=== PATIENT | female | born 1945 | race African-American/Black ===

== ENCOUNTER 2017-07-23 15:23 | Emergency (ER) | payer MEDICARE, MEDICAID ==
[2017-07-23] MEDS ORDERED: NORMAL SALINE 1000 ML 1,000 ML IV PRN (16:16)
--- NOTE | 2017-07-23 16:16 | ER Document Report ---
ED General - General Chief Complaint: Abdominal Pain Stated Complaint: ABDOMINAL PAIN Time Seen by Provider: 07/23/17 15:53 Mode of Arrival: Ambulatory Information source: Patient Notes: This is a 71-year-old female with baseline cognitive dysfunction who comes to the emergency room because of abdominal pain. Patient states she has had the abdominal pain for the last day. She denies any nausea or vomiting. She cannot tell me if anything makes it better or worse. TRAVEL OUTSIDE OF THE [place] IN LAST 30 DAYS: No - HPI Onset/Duration: Gradual Quality of pain: No pain Severity: None Pain Level: Denies Associated symptoms: denies: Chills, Fever Exacerbated by: Denies Relieved by: Denies Similar symptoms previously: Yes Recently seen / treated by doctor: Yes - Related Data Allergies/Adverse Reactions: No Known Allergies Allergy (Verified 11/25/12 15:44) Past Medical History - General Information source: Patient - Social History Smoking Status: Never Smoker Cigarette use (# per day): No Chew tobacco use (# tins/day): No Frequency of alcohol use: None Drug Abuse: None Lives with: Family Family History: Reviewed & Not Pertinent Patient has suicidal ideation: No Patient has homicidal ideation: No - Past Medical History Cardiac Medical History: Reports: Hx Hypertension Endocrine Medical History: Reports: Hx Diabetes Mellitus Type 2 Renal/ Medical History: Denies: Hx Peritoneal Dialysis Past Surgical History: Reports: Hx Abdominal Surgery - Immunizations Hx Diphtheria, Pertussis, Tetanus Vaccination: Yes Review of Systems - Review of Systems Constitutional: denies: Chills, Fever EENT: No symptoms reported Cardiovascular: No symptoms reported Respiratory: No symptoms reported Gastrointestinal: See HPI Genitourinary: No symptoms reported Female Genitourinary: No symptoms reported Musculoskeletal: No symptoms reported Skin: No symptoms reported Hematologic/Lymphatic: No symptoms reported Neurological/Psychological: No symptoms reported Physical Exam - Vital signs Vitals: Temp Pulse Resp BP Pulse Ox 97.8 F 76 18 130/66 H 100 07/23/17 15:34 07/23/17 15:34 07/23/17 15:34 07/23/17 15:34 07/23/17 15:34 Notes: Physical exam: GENERAL: 71-year-old female, alert and oriented 3, no acute distress. Rectal temperature 98f HEAD: Atraumatic, normocephalic. EYES: Pupils equal round and reactive to light, extraocular movements intact, sclera anicteric, conjunctiva are normal. ENT: TMs normal, nares patent, oropharynx clear without exudates. Moist mucous membranes. NECK: Normal range of motion, supple without obvious mass or JVD. LUNGS: Breath sounds clear to auscultation bilaterally and equal. No wheezes rales or rhonchi. HEART: Regular rate and rhythm without murmurs, rubs or gallops. ABDOMEN: Soft, normoactive bowel sounds. Mild upper abdominal tenderness without rebound or guarding, no masses appreciated Rectal: Brown stool, sent for study EXTREMITIES: Normal range of motion, no pitting or edema. No clubbing or cyanosis. NEUROLOGICAL: Cranial nerves II through XII grossly intact. Normal speech, moving all extremities. PSYCH: Normal mood, normal affect. SKIN: Warm, Dry, normal turgor, no rashes or lesions noted. Course - Vital Signs Vital signs: Temp Pulse Resp BP Pulse Ox 97.8 F 75 18 132/61 H 95 07/23/17 15:34 07/23/17 18:00 07/23/17 18:00 07/23/17 18:00 07/23/17 18:00 - Laboratory Result Diagrams: 07/23/17 18:29 07/23/17 17:23 Laboratory results interpreted by me: 07/23/17 07/23/17 07/23/17 17:23 18:29 19:47 Hgb 11.4 L Hct 35.2 L MCV 75 L MCH 24.3 L Est GFR (Non-Af Amer) 58 L Glucose 138 H Calcium 10.5 H Ur Leukocyte Esterase SMALL H - Diagnostic Test Radiology reviewed: Image reviewed, Reports reviewed - CT of the abdomen shows no acute intra-abdominal process. Ultrasound of the gallbladder showed no evidence of gallbladder disease. Discharge - Discharge Clinical Impression: Gastritis, Abdominal pain Condition: Stable Disposition: HOME, SELF-CARE Instructions: Abdominal Pain ([facility]) Additional Instructions: Thank you for choosing [facility] for your care. The examination and treatment you have received in the Emergency Department today has been rendered on an emergency basis only and is not intended to be a substitute for complete medical care. You should contact your follow-up physician as it is important that he or she examine you for any new or remaining problems. If given a copy of any lab tests or radiology reports, please bring them with you when you see your physician. If your problem worsens or new symptoms appear and you are unable to arrange prompt follow-up care, return to the Emergency Department. Specific signs to look out for: Worsening abdominal pain, fever (temperature greater than 100.4), vomiting, not tolerating fluids or any concerns or getting worse. Any other instructions: Follow-up with Dr. Clark this week. He will be able to see all the results from the labs, CT scan and ultrasound. Continue current medicines. Dr Clark Address: [address] [place] [address] [place] [address] Referrals: CAM CLARK MD [Primary Care Provider] - Follow up in 3-5 days
--- NOTE | 2017-07-23 16:52 | RADIOLOGY REPORT (SQ) ---
EXAM DESCRIPTION: CHEST SINGLE VIEW COMPLETED DATE/TIME: 07/23/2017 4:40 pm REASON FOR STUDY: chest pain COMPARISON: 01/10/2013. EXAM PARAMETERS: NUMBER OF VIEWS: One view. TECHNIQUE: Single frontal radiographic view of the chest acquired. RADIATION DOSE: NA LIMITATIONS: None. FINDINGS: LUNGS AND PLEURA: No infiltrate, masses or pneumothorax. No pleural effusion. MEDIASTINUM AND HILAR STRUCTURES: No masses. Contour normal. HEART AND VASCULAR STRUCTURES: Heart normal in size. Normal vasculature. BONES: No acute findings. HARDWARE: None in the chest. OTHER: No other significant finding. IMPRESSION: No acute disease. TECHNICAL DOCUMENTATION: JOB ID: [id number] [id number] 2010 [employer]- All Rights Reserved
[2017-07-23 17:53] LABS: ALANINE AMINOTRANSFERASE 26 U/L (9-52); ALBUMIN 4.6 g/dL (3.5-5.0); ALKALINE PHOSPHATASE 98 U/L (38-126); ANION GAP 15 (5-19); ASPARTATE AMINO TRANSFERASE 19 U/L (14-36); BILIRUBIN,DIRECT 0.3 mg/dL (0.0-0.4); BILIRUBIN,TOTAL 0.4 mg/dL (0.2-1.3); BLOOD UREA NITROGEN 13 mg/dL (7-20); CALCIUM 10.5 mg/dL (8.4-10.2); CARBON DIOXIDE 26 mmol/L (22-30); CHLORIDE 103 mmol/L (98-107); CREATININE RESULT 0.95 mg/dL (0.52-1.25); GLUCOSE 138 mg/dL (75-110); LIPASE 59.4 U/L (23-300); POTASSIUM 4.7 mmol/L (3.6-5.0); SODIUM 143.6 mmol/L (137-145); TOTAL PROTEIN 8.1 g/dL (6.3-8.2)
--- NOTE | 2017-07-23 18:42 | RADIOLOGY REPORT (SQ) ---
EXAM DESCRIPTION: U/S ABDOMEN LIMITED W/O DOP COMPLETED DATE/TIME: 07/23/2017 6:21 pm REASON FOR STUDY: uppere abdomen pain COMPARISON: None. TECHNIQUE: Dynamic and static grayscale images acquired of the abdomen and recorded on PACS. Additio nal selected color Doppler and spectral images recorded. LIMITATIONS: None. FINDINGS: PANCREAS: No masses. Visualized pancreatic duct normal caliber. LIVER: No masses. Echotexture normal. LIVER VASCULATURE: Normal directional flow of the main portal vein and hepatic veins. GALLBLADDER: No stones. Normal wall thickness. No pericholecystic fluid. ULTRASOUND-DETECTED HALE'S SIGN: Negative. INTRAHEPATIC DUCTS AND COMMON DUCT: CBD and intrahepatic ducts normal caliber. No filling defects. INFERIOR VENA CAVA: Normal flow. AORTA: No aneurysm. RIGHT KIDNEY: Normal size. Normal echogenicity. No solid or suspicious masses. No hydronephrosis. No calcifications. PERITONEAL AND RIGHT PLEURAL SPACE: No ascites or effusions. OTHER: No other significant findings. IMPRESSION: NORMAL RIGHT UPPER QUADRANT ULTRASOUND. TECHNICAL DOCUMENTATION: JOB ID: [id number] [employer]- All Rights Reserved
[2017-07-23 18:47] LABS: ABSOLUTE BASOPHILS # (AUTO) 0.1 10^3/uL (0.0-0.2); ABSOLUTE EOSINOPHILS # (AUTO) 0.1 10^3/uL (0.0-0.6); ABSOLUTE LYMPHOCYTES (AUTO) 2.1 10^3/uL (0.5-4.7); ABSOLUTE MONOCYTES (AUTO) 0.4 10^3/uL (0.1-1.4); ABSOLUTE NEUT (AUTO) 4.1 10^3/uL (1.7-8.2); BASOPHILS % (AUTO) 0.8 % (0-2); EOSINOPHILS % (AUTO) 1.4 % (0-6); HEMATOCRIT 35.2 % (36.0-47.0); HEMOGLOBIN 11.4 g/dL (12.0-15.5); LYMPHOCYTES % (AUTO) 30.4 % (13-45); MEAN CORPUSCULAR HEMOGLOBIN 24.3 pg (27.0-33.4); MEAN CORPUSCULAR HGB CONC 32.4 g/dL (32.0-36.0); MEAN CORPUSCULAR VOLUME 75 fl (80-97); MONOCYTES % (AUTO) 6.1 % (3-13); RED BLOOD COUNT 4.69 10^6/uL (3.72-5.28); RED CELL DISTRIBUTION WIDTH 13.9 % (11.5-14.0); SEGMENTED NEUTROPHILS % (AUTO) 61.3 % (42-78); WHITE BLOOD COUNT 6.8 10^3/uL (4.0-10.5)
--- NOTE | 2017-07-23 19:50 | RADIOLOGY REPORT (SQ) ---
EXAM DESCRIPTION: CT ABD/PELVIS WITH IV ONLY COMPLETED DATE/TIME: 07/23/2017 7:31 pm REASON FOR STUDY: abd pain COMPARISON: 07/23/2017 ultrasound. TECHNIQUE: CT scan of the abdomen and pelvis performed using helical scanning technique with dynamic intravenous contrast injection. No oral contrast. Images reviewed with lung, soft tissue, and bone windows. Reconstructed coronal and sagittal MPR images reviewed. Delayed images for evaluation of the urinary system also acquired. All images stored on PACS. All CT scanners at this facility use dose modulation, iterative reconstruction, and/or weight based d osing when appropriate to reduce radiation dose to as low as reasonably achievable (ALARA). [facility]: Dose Right [facility]: CareDose [facility]: Dose Right [facility]: Teradose 4D [facility]: [employer] CONTRAST TYPE AND DOSE: contrast/concentration: Isovue 370.00 mg/ml; Total Contrast Delivered: 99.0 ml; Total Saline Delivered: 67.0 ml RENAL FUNCTION: Creatinine 0.95 RADIATION DOSE: CT Rad equipment meets quality standard of care and radiation dose reduction techniq ues were employed. CTDIvol: 6.4 - 8.8 mGy. DLP: 744 mGy-cm.. LIMITATIONS: None. FINDINGS: LOWER CHEST: Motion artifact and subsegmental volume loss/scar. LIVER: Normal size. No masses. No dilated ducts. SPLEEN: Normal size. No focal lesions. PANCREAS: No masses. No significant calcifications. No adjacent inflammation or peripancreatic fluid collections. Pancreatic duct not dilated. GALLBLADDER: No identified stones by CT criteria. No inflammatory changes to suggest cholecystitis. ADRENAL GLANDS: No significant masses or asymmetry. RIGHT KIDNEY AND URETER: Subcentimeter exophytic lesion laterally off the mid pole with elevated Houn sfield units. No urinary obstruction or stones. LEFT KIDNEY AND URETER: Subcentimeter exophytic nodule off the lateral upper pole with elevated Houns field units. No stones or obstruction. AORTA AND VESSELS: No aneurysm. No dissection. Renal arteries, SMA, celiac without stenosis. RETROPERITONEUM: No retroperitoneal adenopathy, hemorrhage or masses. BOWEL AND PERITONEAL CAVITY: No abnormally dilated loops. No evidence of mechanical obstruction, asc ites or abnormal gas. No bulky adenopathy or implants detected. Evidence of previous surgery, sutur es in right lower quadrant small bowel. APPENDIX: Not visualized. PELVIS: No mass. No free fluid. Normal bladder. ABDOMINAL WALL: No masses. No hernias. BONES: Lumbar spondylosis with disc disease most pronounced at L1-2. No fracture or worrisome bone l esion. OTHER: No other significant finding. IMPRESSION: 1. No acute abdominopelvic abnormality. 2. Small bilateral subcentimeter exophytic nidhi l lesions. Potentially small solid masses. Ultrasound of the right upper quadrant from earlier toda y revealed no solid mass. Elective followup renal MRI when the patient is no longer acutely ill may be warranted. TECHNICAL DOCUMENTATION: JOB ID: [id number] Quality ID # [id number]: Final reports with documentation of one or more dose reduction techniques (e.g., Au tomated exposure control, adjustment of the mA and/or kV according to patient size, use of iterative reconstruction technique) 2010 [employer]- All Rights Reserved
[2017-07-23 20:02] LABS: APPEARANCE,URINE CLEAR; BILIRUBIN,URINE NEGATIVE (NEGATIVE); GLUCOSE, URINE NEGATIVE (NEGATIVE); KETONES,URINE NEGATIVE (NEGATIVE); LEUKOCYTE ESTERASE,URINE SMALL (NEGATIVE); NITRITE,URINE NEGATIVE (NEGATIVE); PROTEIN,URINE NEGATIVE (NEGATIVE); URINE SPECIFIC GRAVITY 1.013; UROBILINOGEN,URINE NEGATIVE mg/dL (<2.0)
[2017-07-23 21:25] VITALS: BP 134/78
== END 2017-07-23 21:23 | disposition home or self-care (01) ==
LOC: ER 15:23
DX: K29.70 Gastritis, unspecified, without bleeding (principal); R10.9 Unspecified abdominal pain
CPT/HCPCS: 36415; 71010; 74177; 76705; 80053; 81001; 82272; 83690; 85025; 99284; L1830

== ENCOUNTER → 2017-09-19 | Outpatient (CLI) | payer MEDICARE, MEDICAID ==
--- NOTE | 2017-09-19 11:35 | WOMENS IMAGING REPORT ---
EXAM DESCRIPTION: 3D SCREENING MAMMO BILAT COMPLETED DATE/TIME: 09/19/2017 10:30 am REASON FOR STUDY: SCREENING MAMMO Z12.31 ENCNTR SCREEN MAMMOGRAM FOR MALIGNANT NEOPLASM OF [place]AN COMPARISON: 06/22/2016 and 02/12/2015. TECHNIQUE: Standard craniocaudal and mediolateral oblique views of each breast recorded using digita l acquisition and breast tomosynthesis. LIMITATIONS: None. FINDINGS: No masses, calcifications or architectural distortion. No areas of suspicion. Read with the assistance of CAD. .[facility] - R2 [employer] Version 1.3 .[facility] - R2 Cen[employer] Version 1.3 .[facility] - R2 C[employer] Version 2.4 .[facility] [place] R2 Cenova Version 2.4 .[facility] - R2 [employer] Version 9.2 IMPRESSION: NORMAL MAMMOGRAM. BIRADS 1. BREAST DENSITY: b. There are scattered areas of fibroglandular density. BIRAD: 1 NEGATIVE RECOMMENDATION: ROUTINE SCREENING COMMENT: The patient has been notified of the results by letter per SA requirements. Additional no tification policies are in place for contacting patient with suspicious or incomplete findings. Quality ID #225: The [employer] recommends an annual screening mammogram for women aged 40 years or over. This facility utilizes a reminder system to ensure that all patients receive reminder letters, and/or direct phone calls for appointments. This includes reminders for routine scr eening mammograms, diagnostic mammograms, or other Breast Imaging Interventions when appropriate. Th is patient will be placed in the appropriate reminder system. The [place] (ACR) has developed recommendations for screening MRI of the breast s in certain patient populations, to be used in conjunction with mammography. Breast MRI surveillanc e may be appropriate for women with more than 20% lifetime risk of developing breast cancer as deter mined by genetic testing, significant family history of the disease, or history of mantle radiation f or Hodgkins Disease. ACR Practice Guidelines 2008. DBT Technology DBT is a type of tomographic mammography. With conventional mammography, overlapping breast tissue ma y make lesions difficult to detect, even with good compression. DBT uses an x-ray tube that rotates a round the breast, taking images at different angles. These images are then combined to create thin sl ices of the breast that the radiologist can view as a 3D reconstruction. The [employer] unit can perform full-field digital mammograms (2D imaging); or DBT (3D imaging); or both, in a combination mode that quickly performs both the mammogram and the tomosynthesis scan while the breast is still compressed. PQRS 6045F: Fluoroscopic imaging is not utilized for breast tomosynthesis. TECHNICAL DOCUMENTATION: FINDING NUMBER: (1) ASSESSMENT: (1) JOB ID: [id number] [employer]- All Rights Reserved
== END ==
LOC: WI 10:15
PROVIDERS: ATTEND Internal Medicine Geriatric Medicine
DX: Z12.31 Encounter for screening mammogram for malignant neoplasm of breast (principal)
CPT/HCPCS: 77063; 77067

== ENCOUNTER → 2018-01-23 | Outpatient (CLI) | payer MEDICARE, MEDICAID ==
[2018-01-24 11:39] LABS: CREATININE URINE 73.8 mg/dL (Not Estab.); MICROALBUMIN URINE <3.0 ug/mL (Not Estab.)
== END ==
LOC: OD 10:25
PROVIDERS: ATTEND Internal Medicine Geriatric Medicine
DX: E11.9 Type 2 diabetes mellitus without complications (principal)
CPT/HCPCS: 82043; 82570

== ENCOUNTER → 2018-08-29 | Outpatient (CLI) | payer MEDICARE, MEDICAID ==
[2018-08-29 10:03] LABS: ALANINE AMINOTRANSFERASE 17 U/L (9-52); ALBUMIN 4.7 g/dL (3.5-5.0); ALKALINE PHOSPHATASE 112 U/L (38-126); ANION GAP 10 (5-19); ASPARTATE AMINO TRANSFERASE 19 U/L (14-36); BILIRUBIN,DIRECT 0.2 mg/dL (0.0-0.4); BILIRUBIN,TOTAL 0.5 mg/dL (0.2-1.3); BLOOD UREA NITROGEN 16 mg/dL (7-20); CALCIUM 10.4 mg/dL (8.4-10.2); CARBON DIOXIDE 28 mmol/L (22-30); CHLORIDE 102 mmol/L (98-107); GLUCOSE 114 mg/dL (75-110); IRON(TIBC) 71.6 ug/dL (37-170); POTASSIUM 5.1 mmol/L (3.6-5.0); SODIUM 140.1 mmol/L (137-145); TOTAL PROTEIN 7.3 g/dL (6.3-8.2)
== END ==
LOC: OD 08:57
PROVIDERS: ATTEND Internal Medicine Geriatric Medicine
DX: R10.9 Unspecified abdominal pain (principal); D50.9 Iron deficiency anemia, unspecified
CPT/HCPCS: 36415; 80048; 80076; 82728; 83540; 83550

== ENCOUNTER → 2018-08-30 | Outpatient (CLI) | payer MEDICARE, MEDICAID ==
--- NOTE | 2018-08-30 14:46 | RADIOLOGY REPORT (SQ) ---
EXAM DESCRIPTION: CT ABD/PELVIS ORAL ONLY COMPLETED DATE/TIME: 08/30/2018 2:27 pm REASON FOR STUDY: ABDOMINAL PAIN R10.9 UNSPECIFIED ABDOMINAL PAIN COMPARISON: 11/25/2012 TECHNIQUE: CT scan of the abdomen and pelvis performed with oral contrast. Images reviewed with lung , soft tissue, and bone windows. Reconstructed coronal and sagittal MPR images reviewed. All images s tored on PACS. All CT scanners at this facility use dose modulation, iterative reconstruction, and/or weight based d osing when appropriate to reduce radiation dose to as low as reasonably achievable (ALARA). [facility]: Dose Right [facility]: CareDose [facility]: Dose Right [facility]: Teradose 4D [facility]: Smart [employer] RADIATION DOSE: CT Rad equipment meets quality standard of care and radiation dose reduction techniq ues were employed. CTDIvol: 5.0 mGy. DLP: 249 mGy-cm.mGy. LIMITATIONS: None. FINDINGS: LOWER CHEST: 2 very small pulmonary nodules are seen on the right on image 5. The larger measures 5 mm. NON-CONTRASTED LIVER, SPLEEN, ADRENALS: Evaluation limited by lack of IV contrast. No identified sign ificant masses. PANCREAS: No masses. No peripancreatic inflammatory changes. GALLBLADDER: No identified stones by CT criteria. No inflammatory changes to suggest cholecystitis. RIGHT KIDNEY AND URETER: No suspicious masses. Assessment limited by lack of IV contrast. No signif icant calcifications. No hydronephrosis or hydroureter. LEFT KIDNEY AND URETER: No suspicious masses. Assessment limited by lack of IV contrast. No signifi cant calcifications. No hydronephrosis or hydroureter. AORTA AND RETROPERITONEUM: No aneurysm. No retroperitoneal masses or adenopathy. BOWEL AND PERITONEAL CAVITY: No obvious masses or inflammatory changes. No free fluid. APPENDIX: Not identified. PELVIS, BLADDER, AND ABDOMINAL WALL:The uterus is absent. Urinary bladder is unremarkable. No pelvi c masses or fluid collections. BONES: No significant findings. OTHER: No other significant finding. IMPRESSION: 1. There are no acute findings in the abdomen or pelvis. 2. There are 2 very small pulmonary nodules on the right. Follow-up as below. COMMENT: FLEISCHNER CRITERIA FOR FOLLOW-UP OF PULMONARY NODULES Incidentally detected new nodules in persons 35 or older. HIGH RISK: History of smoking or other known risk factors. <6mm multiple solid nodules: LOW RISK: no routine followup. HIGH RISK: optional CT 12 mo. Quality ID # 436: Final reports with documentation of one or more dose reduction techniques (e.g., Au tomated exposure control, adjustment of the mA and/or kV according to patient size, use of iterative reconstruction technique) TECHNICAL DOCUMENTATION: JOB ID: [id number]- All Rights Reserved Reading location - IP/workstation name: [email or web address]
== END ==
LOC: RAD 13:38
PROVIDERS: ATTEND Internal Medicine Geriatric Medicine
DX: R10.9 Unspecified abdominal pain (principal)
CPT/HCPCS: 74176

== ENCOUNTER 2018-09-08 11:19 | Emergency (ER) | payer MEDICARE, MEDICAID ==
--- NOTE | 2018-09-08 11:53 | ER Document Report ---
ED Medical Screen (RME) - General Chief Complaint: Eye Problem Stated Complaint: VISION LOSS Time Seen by Provider: 09/08/18 11:50 Primary Care Provider: CAM CLARK MD [Primary Care Provider] - Follow up as needed TRAVEL OUTSIDE OF THE [place] IN LAST 30 DAYS: No - HPI Notes: 09/08/18 11:53 History of glaucoma difficulty seeing today. - Related Data Allergies/Adverse Reactions: No Known Allergies Allergy (Verified 09/08/18 11:20) Past Medical History - Past Medical History Cardiac Medical History: Reports: Hx Hypertension Endocrine Medical History: Reports: Hx Diabetes Mellitus Type 2 Renal/ Medical History: Denies: Hx Peritoneal Dialysis Past Surgical History: Reports: Hx Abdominal Surgery - Immunizations Hx Diphtheria, Pertussis, Tetanus Vaccination: Yes Review of Systems - Review of Systems EENT: Other - Blurry vision Physical Exam - Vital signs Vitals: Temp Pulse Resp BP Pulse Ox 98.7 F 76 18 146/104 H 98 09/08/18 11:27 09/08/18 11:27 09/08/18 11:27 09/08/18 11:27 09/08/18 11:27 - HEENT Head: Normocephalic Course - Vital Signs Vital signs: Temp Pulse Resp BP Pulse Ox 98.7 F 76 18 146/104 H 98 09/08/18 11:27 09/08/18 11:27 09/08/18 11:27 09/08/18 11:27 09/08/18 11:27 Doctor's Discharge - Discharge Referrals: CAM CLARK MD [Primary Care Provider] - Follow up as needed
--- NOTE | 2018-09-08 12:28 | RADIOLOGY REPORT (SQ) ---
EXAM DESCRIPTION: CT HEAD WITHOUT COMPLETED DATE/TIME: 09/08/2018 12:19 pm REASON FOR STUDY: loss of vision COMPARISON: None. TECHNIQUE: Axial images acquired through the brain without intravenous contrast. Images reviewed wi th bone, brain and subdural windows. Additional sagittal and coronal reconstructions were generated. Images stored on PACS. All CT scanners at this facility use dose modulation, iterative reconstruction, and/or weight based d osing when appropriate to reduce radiation dose to as low as reasonably achievable (ALARA). [facility]: Dose Right [facility]: CareDose [facility]: Dose Right [facility]: Teradose 4D [facility]: Smart [employer] RADIATION DOSE: CT Rad equipment meets quality standard of care and radiation dose reduction techniq ues were employed. CTDIvol: 53.2 mGy. DLP: 1097 mGy-cm. mGy. LIMITATIONS: None. FINDINGS: VENTRICLES: Normal size and contour. CEREBRUM: No masses. No hemorrhage. No midline shift. No evidence for acute infarction. Normal gra y/white matter differentiation. No areas of low density in the white matter. CEREBELLUM: No masses. No hemorrhage. No alteration of density. No evidence for acute infarction. EXTRAAXIAL SPACES: No fluid collections. No masses. ORBITS AND GLOBE: No intra- or extraconal masses. Normal contour of globe without masses. CALVARIUM: No fracture. PARANASAL SINUSES: No fluid or mucosal thickening. SOFT TISSUES: No mass or hematoma. OTHER: No other significant finding. IMPRESSION: No acute intracranial pathology. EVIDENCE OF ACUTE STROKE: NO. COMMENT: Quality ID # 436: Final reports with documentation of one or more dose reduction techniques (e.g., Automated exposure control, adjustment of the mA and/or kV according to patient size, use of iterative reconstruction technique) TECHNICAL DOCUMENTATION: JOB ID: [id number] [employer]- All Rights Reserved Reading location - IP/workstation name: [email or web address]
[2018-09-08] MEDS ORDERED: TETRACAINE HCL 0.5% OPH SOLN 4 ML OD ONE (14:09)
[2018-09-08 15:23] VITALS: BP 147/69
--- NOTE | 2018-09-08 16:22 | ER Document Report ---
ED General - General Chief Complaint: Eye Problem Stated Complaint: VISION LOSS Time Seen by Provider: 09/08/18 11:50 Primary Care Provider: CAM CLARK MD [Primary Care Provider] - Follow up as needed Mode of Arrival: Stretcher Information source: Patient Notes: This is a 73-year-old female with a history of diabetes, dyslipidemia, hypertension, glaucoma and baseline cognitive dysfunction (at baseline she does not read). Patient was at daycare on (2 days ago) when she noticed decreased vision in her right eye while working on puzzles. Her care provider at home (Ms. Chela Huntley [phone]) reports that the patient stated that the vision seemed to improve somewhat on Monday and that when she woke up on Monday she could not see out of the right eye. Patient does have some confusion on which I she had difficulty with. But at the bedside, she is unable to distinguish figures from the right eye. Patient denies any trauma to the eye. Patient denies any eye discharge. She patient denies any wavy lines. Patient denies any pain. TRAVEL OUTSIDE OF THE [place] IN LAST 30 DAYS: No - HPI Onset: Last week - Patient initially stated that she was having symptoms a week ago. Patient's aide (Ms. Huntley) states that her symptoms were on . Onset/Duration: Sudden Quality of pain: No pain Severity: None Pain Level: Denies Associated symptoms: denies: Chest pain, Nonproductive cough, Productive cough, Fever Exacerbated by: Denies Relieved by: Denies Similar symptoms previously: No Recently seen / treated by doctor: No - Related Data Allergies/Adverse Reactions: No Known Allergies Allergy (Verified 09/08/18 11:20) Past Medical History - General Information source: Patient - Social History Smoking Status: Never Smoker Cigarette use (# per day): No Chew tobacco use (# tins/day): Yes Frequency of alcohol use: None Drug Abuse: None Lives with: Family Family History: Reviewed & Not Pertinent Patient has suicidal ideation: No Patient has homicidal ideation: No - Past Medical History Cardiac Medical History: Reports: Hx Hypertension Endocrine Medical History: Reports: Hx Diabetes Mellitus Type 2 Renal/ Medical History: Denies: Hx Peritoneal Dialysis Past Surgical History: Reports: Hx Abdominal Surgery, Other - Cataract surgery on the right - Immunizations Hx Diphtheria, Pertussis, Tetanus Vaccination: Yes Review of Systems - Review of Systems Constitutional: denies: Chills, Fever EENT: See HPI Cardiovascular: denies: Chest pain, Palpitations, Heart racing Respiratory: denies: Cough, Short of breath Gastrointestinal: No symptoms reported Female Genitourinary: No symptoms reported Musculoskeletal: No symptoms reported Skin: No symptoms reported Hematologic/Lymphatic: No symptoms reported Neurological/Psychological: No symptoms reported Physical Exam - Vital signs Vitals: Temp Pulse Resp BP Pulse Ox 98.7 F 76 18 146/104 H 98 09/08/18 11:27 09/08/18 11:27 09/08/18 11:27 09/08/18 11:27 09/08/18 11:27 Notes: Physical exam: GENERAL: Patient is alert and oriented x3, no acute distress. HEAD: Atraumatic, normocephalic. EYES: Left eye: pupil Round and reactive to light. Sclerae clear. Patient is able to distinguish and count fingers. She is unable to read letters (at baseline, she is unable to read). No obvious hyphema. Bedside ultrasound shows no retinal detachment. Tonopen: Pressure is 20 (tested multiple times). Right eye: Pupil is irregular (patient has had surgery). The sclera is mildly injected. Patient has no pain to the eye. There is some reactivity to light. Chilo-Pen: Pressure is 13-14 (tested multiple times). Bedside ultrasound: No obvious retinal detachments. Slit lamp available in the ER. ENT: TMs normal, nares patent, oropharynx clear without exudates. Moist mucous membranes. NECK: Normal range of motion, supple without obvious mass or JVD. LUNGS: Breath sounds clear to auscultation bilaterally and equal. No wheezes rales or rhonchi. HEART: Regular rate and rhythm without murmurs, rubs or gallops. ABDOMEN: Soft, normoactive bowel sounds. No tenderness to palpation. No guarding, no rebound. No masses appreciated. EXTREMITIES: Normal range of motion, no pitting or edema. No clubbing or cyanosis. NEUROLOGICAL: Cranial nerves II through XII grossly intact. Normal speech, moving all extremities. PSYCH: Normal mood, normal affect. SKIN: Warm, Dry, normal turgor, no rashes or lesions noted. - HEENT Visual acuity- Left eye: un Visual acuity- Both eyes: un Corrective lenses worn: No Course - Re-evaluation Re-evalutation: 09/08/18 16:18 Note: This is a 73-year-old female with a history of glaucoma, diabetes, dyslipidemia and hypertension presenting to the emergency room with painless, monocular (right-sided) vision loss 2 days. Bedside ultrasound does not show any obvious retinal detachment. The pupil itself is somewhat irregular (which is probably baseline). There is some response of the pupil to light. The pressure in the eye (tested multiple times) and is in the range of 13-14. 09/08/18 17:28 Discussed the case with Dr. Horton (patient's eye doctor in [place]). Given the above findings, she wants to see the patient in the office tomorrow (Monday at 1:30 PM). She felt that mostly what ever the event was that occurred, has already taken place and she will now follow-up with the patient tomorrow. I have discussed this with ms Huntley about the appointment tomorrow and she will make arrangements with the patient's family. - Vital Signs Vital signs: Temp Pulse Resp BP Pulse Ox 98.1 F 60 16 147/69 H 100 09/08/18 15:20 09/08/18 15:20 09/08/18 15:20 09/08/18 15:20 09/08/18 15:20 - Diagnostic Test Radiology reviewed: Image reviewed, Reports reviewed - CT shows no lesions Discharge - Discharge Clinical Impression: Monocular vision loss Condition: Stable Disposition: HOME, SELF-CARE Additional Instructions: Your head CT today look quite good. On exam, the vision loss does appear to be the right eye. Her eye pressures today were 20 on the right eye, 13 on the left eye. I have discussed your findings with Dr. Horton who is willing to see you in her office in [place] tomorrow (Monday) at 1:30 PM. You can call her if you are unable to make it to see his you do have her number). I do recommend you take an aspirin a day. Referrals: CAM CLARK MD [Primary Care Provider] - Follow up as needed
== END 2018-09-08 17:47 | disposition home or self-care (01) ==
LOC: ER 11:19
DX: H54.61 Unqualified visual loss, right eye, normal vision left eye (principal); E11.9 Type 2 diabetes mellitus without complications; I10 Essential (primary) hypertension; Z55.0 Illiteracy and low-level literacy; Z98.890 Other specified postprocedural states
CPT/HCPCS: 99284; 70450; J3490

== ENCOUNTER 2018-10-02 06:21 | Day surgery (SDC) | payer MEDICARE, MEDICAID ==
[2018-10-01 12:02] LABS: HEMATOCRIT 37.9 % (36.0-47.0); HEMOGLOBIN 12.2 g/dL (12.0-15.5); MEAN CORPUSCULAR HEMOGLOBIN 24.3 pg (27.0-33.4); MEAN CORPUSCULAR HGB CONC 32.1 g/dL (32.0-36.0); MEAN CORPUSCULAR VOLUME 76 fl (80-97); PLATELET COUNT 375 10^3/uL (150-450); RED BLOOD COUNT 5.01 10^6/uL (3.72-5.28); RED CELL DISTRIBUTION WIDTH 13.9 % (11.5-14.0); WHITE BLOOD COUNT 7.3 10^3/uL (4.0-10.5)
[2018-10-01 12:24] LABS: ANION GAP 12 (5-19); BLOOD UREA NITROGEN 16 mg/dL (7-20); CARBON DIOXIDE 28 mmol/L (22-30); CHLORIDE 103 mmol/L (98-107); GLUCOSE 101 mg/dL (75-110)
[~2018-10-02 06:21] MED LIST: LACTATED RINGERS 1000 ML IV PRN; LIDOCAINE 0.5% INJ-PF (5 MG/ML) 50 ML SDV SUBCUT PRN
[2018-10-02] MEDS ORDERED: LIDOCAINE 0.5% INJ-PF (5 MG/ML) 50 ML SDV ONE (08:13)
[2018-10-02] MEDS ORDERED: BUPIVACAINE HCL 0.25 % INJ/PF (2.5 MG/1 ML) 30 ML VIAL ONE (08:13)
[2018-10-02] MEDS ORDERED: MIDAZOLAM 2 MG/2 ML INJ ONE (08:21)
[2018-10-02] MEDS ORDERED: FENTANYL CITRATE INJ/PF 100 MCG/2 ML AMPUL ONE (08:21)
[2018-10-02] MEDS ORDERED: ACETAMINOPHEN 0 MG/0 ML RTUPB IV ONE (08:21)
[2018-10-02] MEDS ORDERED: PROPOFOL INJ 200 MG/20 ML VIAL IV ONE (08:21)
[2018-10-02] MEDS ORDERED: ONDANSETRON HCL INJ/PF 4 MG/2 ML SDV ONE (08:21)
[2018-10-02] MEDS ORDERED: EPHEDRINE SULFATE INJ 50 MG/1 ML AMPULE ONE (08:21)
[2018-10-02] MEDS ORDERED: PROMETHAZINE HCL INJ 25 MG/1 ML VIAL IV PRN ×2 (09:38)
[2018-10-02] MEDS ORDERED: FENTANYL CITRATE INJ/PF 100 MCG/2 ML AMPUL IV PRN ×2 (09:38)
[2018-10-02] MEDS ORDERED: DIPHENHYDRAMINE HCL 50 MG/ML VIAL IV PRN (09:38)
[2018-10-02] MEDS ORDERED: MEPERIDINE HCL/PF INJ 25 MG/1 ML DISP.SYRIN IV PRN (09:38)
--- NOTE | 2018-10-02 09:42 | Discharge Summary ---
Discharge Summary (SDC) - Discharge Final Diagnosis: #1 temporal arteritis, suspected. 2. Diabetes mellitus type 2. 3. Developmental delay. 4. Hypertension Date of Surgery: 10/02/18 Discharge Date: 10/02/18 Condition: Fair Treatment or Instructions: Discharge home [after recovery per ASU criteria]. Diet , [renal],as tolerated, when fully awake advance as tolerated. Activities within moderation encouraged. Follow up in my office by appointment in about [1 week]. Call for appointment. Leave wounds [covered], [keep clean and dry, until office visit in 1 week]. Hold of on school/work [until evaluation in office]. Meds per med rec. May shower [in 48 hrs], [try to keep operated area as dry as possible]. Referrals: CAM CLARK MD [Primary Care Provider] - Discharge Diet: As Tolerated Respiratory Treatments at Home: Deep Breathing/Coughing Discharge Activity: Activity As Tolerated Report the Following to Your Physician Immediately: Shortness of Breath, Unusual Bleeding
--- NOTE | 2018-10-02 09:45 | Operative Report ---
Operative Report DATE OF SURGERY: 10/02/18 PREOPERATIVE DIAGNOSIS: #1 temporal arteritis, suspected. 2. Diabetes mellitus type 2. 3. Developmental delay. 4. Hypertension POSTOPERATIVE DIAGNOSIS: #1 temporal arteritis, suspected. 2. Diabetes mellitus type 2. 3. Developmental delay. 4. Hypertension OPERATION: Left temporal artery biopsy. SURGEON: RAJ AHN LONG DISTANCE OPERATOR: None. ANESTHESIA: LMAC TISSUE REMOVED OR ALTERED: Left temporal artery, portion of. COMPLICATIONS: None. ESTIMATED BLOOD LOSS: 2 mL. INTRAOPERATIVE FINDINGS: Of a tortuous some, somewhat serpentine temporal artery slightly firm. No obvious inflammation to the naked eye. 2 cm removed and submitted fresh for pathology. PROCEDURE: PROCEDURE: This patient presents with symptoms of possible ophthalmic stroke. Symptoms seem mostly on the left. Temporal artery biopsy was requested by the patient's primary care physician. Given the potentially irreversible consequences of temporal arteritis, biopsy seems well indicated. This was discussed with the patient and her caregivers. I believe they have a good understanding and they are agreeable. The left temporal area was prepared with [chlorhexidine] and draped out with sterile linen. After the"universal time-out", in which it was confirmed that the patient [did not need antibiotic], the procedure commenced. The patient was appropriately anesthetized. The topographic location of the temporal artery was identified using a Doppler instrument and also palpation. It was marked in ink.. A dilute solution of local anesthesia was generously infiltrated in the skin and subcutaneous tissues above and around the area. An incision was made as marked. This went through to the subcutaneous tissues. Dissection now proceeded By spreading a hemostat to reveal the artery beneath the fascia. The artery was dissected out for a distance of about 2 cm. Both ends were clamped. The intervening section was excised and carefully submitted for pathology in formalin. Both ends were now suture ligated using 5-0 Prolene suture The wound was now closed using [a single layer of interrupted sutures. These were of 5-0 Prolene. A sterile dressing was applied and the procedure concluded.
[2018-10-02] MEDS: FENTANYL CITRATE INJ/PF 100 MCG/2 ML AMPUL ONE ×4 (10:11→10:30)
[2018-10-02] MEDS ORDERED: ACETAMINOPHEN 1,000 MG/100 ML RTUPB IV ONE (10:19)
[2018-10-02 12:17] VITALS: BP 153/71
--- NOTE | 2018-10-03 10:25 | EKG REPORT ---
SEVERITY:- BORDERLINE ECG - SINUS RHYTHM PROBABLE LEFT ATRIAL ABNORMALITY : Confirmed by: Susan London 03-Oct-2018 10:24:54
== END 2018-10-02 12:10 | disposition home health service (06) ==
LOC: OROUT 06:21
PROVIDERS: ATTEND Surgery
DX: I74.8 Embolism and thrombosis of other arteries (principal); I10 Essential (primary) hypertension; E11.9 Type 2 diabetes mellitus without complications; H53.31 Abnormal retinal correspondence; Z79.01 Long term (current) use of anticoagulants; D64.9 Anemia, unspecified; R62.50 Unspecified lack of expected normal physiological development in childhood; K21.9 Gastro-esophageal reflux disease without esophagitis; Z79.899 Other long term (current) drug therapy; Z79.84 Long term (current) use of oral hypoglycemic drugs
CPT/HCPCS: 93010; 93005; 36415; 82962; 85027; 80048; 88305 ×2; 37609; J2250; J3010; J3490; J2405; J2704; J0131; 352

== ENCOUNTER → 2018-10-16 | Outpatient (CLI) | payer MEDICARE, MEDICAID | LOC: OD 09:10 | PROVIDERS: ATTEND Ophthalmology Retina Specialist | DX: H47.011 Ischemic optic neuropathy, right eye (principal); H53.131 Sudden visual loss, right eye; H35.443 Age-related reticular degeneration of retina, bilateral | CPT/HCPCS: 36415; 85652; 86140 ==

== ENCOUNTER → 2019-01-14 | Outpatient (CLI) | payer MEDICARE, MEDICAID ==
--- NOTE | 2019-01-14 12:33 | WOMENS IMAGING REPORT ---
EXAM DESCRIPTION: 3D SCREENING MAMMO BILAT COMPLETED DATE/TIME: 01/14/2019 11:46 am REASON FOR STUDY: Z12.31 ROUTINE 3D BILATERAL SCREENING Z12.31 ENCNTR SCREEN MAMMOGRAM FOR MALIGNAN T NEOPLASM OF ESTEVAN COMPARISON: 09/19/2017 and 06/22/2016. EXAM PARAMETERS: Views: Standard craniocaudal and mediolateral oblique views of each breast recorded using digital acquisition and breast tomosynthesis. Read with the assistance of CAD. .[facility] - [employer] Bo[employer] Machine Operator Cloth Version 9.2 LIMITATIONS: None. FINDINGS: No suspicious masses, suspicious calcifications or architectural distortion. No areas of c oncern. IMPRESSION: NEGATIVE MAMMOGRAM. BIRADS 1. BREAST DENSITY: b. There are scattered areas of fibroglandular density. BIRAD: ASSESSMENT: 1 NEGATIVE RECOMMENDATION: ROUTINE SCREENING COMMENT: The patient has been notified of the results by letter per MQSA requirements. Additional no tification policies are in place for contacting patient with suspicious or incomplete findings. Quality ID #225: The [employer] recommends an annual screening mammogram for women aged 40 years or over. This facility utilizes a reminder system to ensure that all patients receive reminder letters, and/or direct phone calls for appointments. This includes reminders for routine scr eening mammograms, diagnostic mammograms, or other Breast Imaging Interventions when appropriate. Th is patient will be placed in the appropriate reminder system. TECHNICAL DOCUMENTATION: FINDING NUMBER: (1) ASSESSMENT: (1) JOB ID: [id number] [employer]- All Rights Reserved Reading location - IP/workstation name: [email or web address]
== END ==
LOC: WI 10:50
PROVIDERS: ATTEND Internal Medicine Geriatric Medicine
DX: Z12.31 Encounter for screening mammogram for malignant neoplasm of breast (principal)
CPT/HCPCS: 77063; 77067

== ENCOUNTER → 2019-12-23 | Outpatient (CLI) | payer MEDICARE, MEDICAID ==
[2019-12-23 09:05] LABS: ALBUMIN 4.4 g/dL (3.5-5.0); ALKALINE PHOSPHATASE 114 U/L (38-126); ANION GAP 7 (5-19); ASPARTATE AMINO TRANSFERASE 22 U/L (14-36); BILIRUBIN,DIRECT 0.2 mg/dL (0.0-0.4); BILIRUBIN,TOTAL 0.9 mg/dL (0.2-1.3); BLOOD UREA NITROGEN 23 mg/dL (7-20); CALCIUM 10.6 mg/dL (8.4-10.2); CARBON DIOXIDE 26 mmol/L (22-30); CHLORIDE 103 mmol/L (98-107); GLUCOSE 94 mg/dL (75-110); POTASSIUM 5.6 mmol/L (3.6-5.0); TOTAL PROTEIN 7.3 g/dL (6.3-8.2)
== END ==
LOC: OD 07:48
PROVIDERS: ATTEND Internal Medicine Geriatric Medicine
DX: I10 Essential (primary) hypertension (principal)
CPT/HCPCS: 36415; 80053

== ENCOUNTER → 2020-01-30 | Outpatient (CLI) | payer MEDICARE, MEDICAID ==
--- NOTE | 2020-01-30 15:10 | WOMENS IMAGING REPORT ---
EXAM DESCRIPTION: 3D SCREENING MAMMO BILAT IMAGES COMPLETED DATE/TIME: 01/30/2020 1:28 pm REASON FOR STUDY: Z12.31 ENCOUNTER FOR SCREENING MAMMOGRAM FOR MALIGNANT NEOPLASM OF BREAST Z12.31 ENCNTR SCREEN MAMMOGRAM FOR MALIGNANT NEOPLASM OF ESTEVAN COMPARISON: 01/14/2019, 09/19/2017, 06/22/2016, 02/12/2015 EXAM PARAMETERS: Views: Standard craniocaudal and mediolateral oblique views of each breast recorded using digital acquisition and breast tomosynthesis. . Read with the assistance of CAD. .[facility] - [employer] Version 2.4 LIMITATIONS: None. FINDINGS: No suspicious masses, suspicious calcifications or architectural distortion. No areas of c oncern. IMPRESSION: NEGATIVE MAMMOGRAM. BIRADS 1. BREAST DENSITY: b. There are scattered areas of fibroglandular density. BIRAD: ASSESSMENT: 1 NEGATIVE RECOMMENDATION: ROUTINE SCREENING COMMENT: The patient has been notified of the results by letter per MQSA requirements. Additional no tification policies are in place for contacting patient with suspicious or incomplete findings. Quality ID #225: The [employer] recommends an annual screening mammogram for women aged 40 years or over. This facility utilizes a reminder system to ensure that all patients receive reminder letters, and/or direct phone calls for appointments. This includes reminders for routine scr eening mammograms, diagnostic mammograms, or other Breast Imaging Interventions when appropriate. Th is patient will be placed in the appropriate reminder system. TECHNICAL DOCUMENTATION: FINDING NUMBER: (1) ASSESSMENT: (1) JOB ID: [id number] 2010 [employer]- All Rights Reserved Reading location - IP/workstation name: [email or web address]
== END ==
LOC: WI 14:01
PROVIDERS: ATTEND Internal Medicine Geriatric Medicine
DX: Z12.31 Encounter for screening mammogram for malignant neoplasm of breast (principal)
CPT/HCPCS: 77063; 77067

== ENCOUNTER 2020-03-04 14:26 | Inpatient (IN) | payer MEDICARE, MEDICAID ==
[2020-03-04] MEDS ORDERED: ONDANSETRON HCL INJ/PF 4 MG/2 ML SDV IV PRN (15:17)
--- NOTE | 2020-03-04 15:17 | ER Document Report ---
ED Medical Screen (RME) - General Chief Complaint: Direct Admit/Private MD Stated Complaint: DIRECT ADMIT/ACUTE ABDOMINAL PAIN Time Seen by Provider: 03/04/20 15:14 Primary Care Provider: CAM CLARK MD [Primary Care Provider] - Follow up as needed Mode of Arrival: Wheelchair Information source: Patient Notes: 74-year-old female is being direct admit for Dr. Clark's office. She is being admitted for abdominal pain nausea vomiting diarrhea. She is actively vomiting. He has written orders but there is no bed available at this time so she will be evaluated in the ED until she can get a bed. Patient is alert oriented but she is moaning that her abdomen is hurting and she is vomiting. She does have orders for labs x-rays and Zofran. I have greeted and performed a rapid initial assessment of this patient. A comprehensive ED assessment and evaluation of the patient, analysis of test results and completion of medical decision making process will be conducted by an additional ED providers. TRAVEL OUTSIDE OF THE [place] 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 Denies: Hx Seizures Endocrine Medical History: Reports: Hx Diabetes Mellitus Type 2 Renal/ Medical History: Denies: Hx Peritoneal Dialysis Musculoskeltal Medical History: Reports Hx Arthritis - BILATERAL LOWER EXTREMITIES Past Surgical History: Reports: Hx Abdominal Surgery, Other - Cataract surgery on the right - Immunizations Hx Diphtheria, Pertussis, Tetanus Vaccination: - UNSURE Physical Exam - Vital signs Vitals: Temp Pulse Resp BP Pulse Ox 97.6 F 91 22 H 130/58 H 99 03/04/20 14:33 03/04/20 14:33 03/04/20 14:33 03/04/20 14:03/04/20 14:33 Course - Vital Signs Vital signs: Temp Pulse Resp BP Pulse Ox 97.6 F 91 22 H 130/58 H 99 03/04/20 14:33 03/04/20 14:33 03/04/20 14:33 03/04/20 14:33 03/04/20 14:33 Doctor's Discharge - Discharge Referrals: CAM CLARK MD [Primary Care Provider] - Follow up as needed
[2020-03-04] MEDS ORDERED: DEXTROSE 50%-WATER SYRINGE 12.5 GM/25 ML DOSE IV PRN (15:30)
[2020-03-04] MEDS ORDERED: GLUCAGON,HUMAN RECOMB 1 MG INJ IM PRN (15:30)
[2020-03-04] MEDS ORDERED: DEXTROSE 50%-WATER SYRINGE 25 GM/50 ML DOSE IV PRN (15:30)
[2020-03-04] MEDS ORDERED: DEXTROSE 40% GEL 15 GM TUBE PO PRN (15:30)
[2020-03-04] MEDS ORDERED: DEXTROSE 40% GEL 15 GM TUBE X 2 PO PRN (15:30)
--- NOTE | 2020-03-04 16:00 | RADIOLOGY REPORT (SQ) ---
EXAM DESCRIPTION: ACUTE ABDOMEN SERIES IMAGES COMPLETED DATE/TIME: 03/04/2020 3:50 pm REASON FOR STUDY: er abd pain with vomiting, constipation COMPARISON: 11/03/2008 NUMBER OF VIEWS: Three views. TECHNIQUE: Frontal chest, supine abdomen and upright/decubitus abdomen radiographic images acquired. LIMITATIONS: None. FINDINGS: CHEST: No focal airspace disease, pleural effusion or pneumothorax. Normal cardiomediasti nal silhouette. FREE AIR: None. No abnormal gas collections. BOWEL GAS PATTERN: Nonobstructive pattern. No dilated loops or air fluid levels. Moderate formed sto ol over the ascending colon. CALCIFICATIONS: No suspicious calcifications. HARDWARE: None in the abdomen. SOFT TISSUES: No gross mass or suggestion of organomegaly. BONES: No acute fracture. No worrisome bone lesions. OTHER: No other significant finding. IMPRESSION: No evidence of acute intrathoracic process. No definitive evidence of obstruction or other acute intra-abdominal process. TECHNICAL DOCUMENTATION: JOB ID: [id number] 2010 [employer]- All Rights Reserved Reading location - IP/workstation name: [email or web address]
[2020-03-04 16:38] LABS: ABSOLUTE BASOPHILS # (AUTO) 0.1 10^3/uL (0.0-0.2); ABSOLUTE LYMPHOCYTES (AUTO) 1.7 10^3/uL (0.5-4.7); ABSOLUTE MONOCYTES (AUTO) 0.5 10^3/uL (0.1-1.4); ABSOLUTE NEUT (AUTO) 10.1 10^3/uL (1.7-8.2); BASOPHILS % (AUTO) 0.6 % (0-2); EOSINOPHILS % (AUTO) 0.3 % (0-6); HEMOGLOBIN 13.8 g/dL (12.0-15.5); LYMPHOCYTES % (AUTO) 14.1 % (13-45); MEAN CORPUSCULAR HEMOGLOBIN 24.2 pg (27.0-33.4); MEAN CORPUSCULAR HGB CONC 31.3 g/dL (32.0-36.0); MEAN CORPUSCULAR VOLUME 77 fl (80-97); RED BLOOD COUNT 5.68 10^6/uL (3.72-5.28); RED CELL DISTRIBUTION WIDTH 14.6 % (11.5-14.0); TOTAL CELLS COUNTED % (AUTO) 100 %; WHITE BLOOD COUNT 12.4 10^3/uL (4.0-10.5)
[2020-03-04 16:58] LABS: PLATELET COUNT 273 10^3/uL (150-450)
[2020-03-04 17:49] LABS: ALBUMIN 4.5 g/dL (3.5-5.0); ALKALINE PHOSPHATASE 114 U/L (38-126); ANION GAP 10 (5-19); ASPARTATE AMINO TRANSFERASE 20 U/L (14-36); BILIRUBIN,TOTAL 0.6 mg/dL (0.2-1.3); BLOOD UREA NITROGEN 13 mg/dL (7-20); CALCIUM 9.8 mg/dL (8.4-10.2); CARBON DIOXIDE 21 mmol/L (22-30); CHLORIDE 108 mmol/L (98-107); GLUCOSE 154 mg/dL (75-110); POTASSIUM 4.2 mmol/L (3.6-5.0); TOTAL PROTEIN 7.5 g/dL (6.3-8.2)
--- NOTE | 2020-03-04 19:11 | ER Document Report ---
ED General - General Chief Complaint: Abdominal Pain Stated Complaint: DIRECT ADMIT/ACUTE ABDOMINAL PAIN Time Seen by Provider: 03/04/20 15:14 Mode of Arrival: Wheelchair TRAVEL OUTSIDE OF THE [place] IN LAST 30 DAYS: No - HPI Notes: Chief complaint: Abdominal pain and vomiting History of present illness: 74-year-old female with history of mental retardation and diabetes mellitus type 2 sent over for direct admission with orders from the office of Dr. Avelar. Patient is complaining of abdominal pain but I really cannot get much more history from her due to her baseline men tation. 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 Denies: Hx Seizures Endocrine Medical History: Reports: Hx Diabetes Mellitus Type 2 Renal/ Medical History: Denies: Hx Peritoneal Dialysis Musculoskeletal Medical History: Reports Hx Arthritis - BILATERAL LOWER EXTR EMITIES Past Surgical History: Reports: Hx Abdominal Surgery, Other - Cataract surgery on the right - Immunizations Hx Diphtheria, Pertussis, Tetanus Vaccination: - UNSURE Review of Systems - Review of Systems -: Yes ROS unobtainable due to patient's medical condition Physical Exam - Vital signs Vitals: Temp Pulse Resp BP Pulse Ox 97.6 F 91 22 H 130/58 H 99 03/04/20 14:33 03/04/20 14:33 03/04/20 14:33 03/04/20 14:33 03/04/20 14:33 - Notes Notes: GENERAL: Elderly female appearing moderately uncomfortable. SKIN: Good turgor no rashes. HEAD: Normocephalic atraumatic. EYES: PERRLA. EOMI. Conjunctivae and sclerae clear. EARS: CANALS AND TMS CLEAR. NOSE: CLEAR. MOUTH: Moist mucosa. Good dentition. No stridor or edema. No drooling. NECK: Supple. No masses or thyromegaly. No adenopathy. Carotids 2+ without bruits. No JVD. BACK: Symmetrical without tenderness. CHEST: Respirations unlabored. Breath sounds clear and symmetrical. HEART: Regular rhythm. No murmur gallop or rub. ABDOMEN: Appears mildly distended. She has a healed low midline surgical scar present is unclear to me from records where her prior surgery was. She is mildly tender in the lower quadrants bilaterally. Soft without masses, organo megaly or rebound. Bowel sounds normally active. No bruits. GENITALIA: Deferred. EXTREMITIES: No edema. No calf tenderness. Cap refill less than 1.5 seconds. Dorsalis pedis and posterior tibial pulses 3+ and symmetrical. NEUROLOGICAL: Alert moving all 4 extremities spontaneously. At her usual baseline per utilization reviewer Course - Re-evaluation Re-evalutation: 03/04/20 19:09 Acute abdominal series negative per radiologist. Her white count and chemistry profile are normal. Waiting for urine specimen. I am little concerned about this lady because of her tenderness and also limited ability to obtain history. I am going to go ahead and order a CT abdomen pelvis with IV contrast. Nurses will execute admission orders as per Dr. Davis Tinoco. There is currently no bed available for the patient so she is being held for prolonged period in the emergency department. - Vital Signs Vital signs: Temp Pulse Resp BP Pulse Ox 97.6 F 91 22 H 130/58 H 99 03/04/20 17:16 03/04/20 14:33 03/04/20 14:33 03/04/20 14:33 03/04/20 14:33 - Laboratory Result Diagrams: 03/04/20 16:00 03/04/20 17:09 Laboratory results interpreted by me: 03/04/20 03/04/20 16:00 17:09 WBC 12.4 H RBC 5.68 H MCV 77 L MCH 24.2 L MCHC 31.3 L RDW 14.6 H Absolute Neuts (auto) 10.1 H Seg Neutrophils % 81.0 H Chloride 108 H Carbon Dioxide 21 L Est GFR (MDRD) Non-Af 59 L Glucose 154 H Discharge - Discharge Clinical Impression: Abdominal pain Condition: Fair Disposition: ADMITTED INPATIENT Admitting Provider: Roiso Unit Admitted: Medical Floor
[2020-03-04] MEDS: INSULIN LISPRO 100 UNIT/ML 3 ML VIAL SUBCUT SCH ×2 (19:38→22:24)
--- NOTE | 2020-03-04 20:26 | RADIOLOGY REPORT (SQ) ---
CT ABDOMEN PELVIS WITH IV CONTRAST HISTORY: Abdominal pain. COMPARISON: 08/30/2018 TECHNIQUE: CT scan of the abdomen and pelvis was performed with IV contrast. This exam was performed according to our departmental dose-optimization program, which includes automated exposure control, adjustment of the mA and/or kV according to patient size and/or use of iterative reconstruction technique. FINDINGS: The lung bases are clear. No pleural or pericardial effusions. There is no hiatal hernia. The liver, spleen, pancreas, gallbladder, adrenal glands, and kidneys are unremarkable. No hydronephrosis or urinary stones are seen. There has been a prior hysterectomy. There are multiple prominent loops of small bowel in the right lower quadrant with a focally dilated loop of distal small bowel surrounding surgical sutures which measures 5.8 cm. The small bowel distal to this region appear nondilated. No free air or abscess is seen. There are mild degenerative changes of the spine. The aorta is normal in caliber. No acute bony findings are seen. IMPRESSION: Multiple dilated small bowel loops in the right lower quadrant surrounding surgical sutures, which may represent developing bowel obstruction or ileus secondary to adhesions.
[2020-03-04] MEDS: ENOXAPARIN SODIUM INJ 40 MG/0.4 ML DISP.SYRIN SUBCUT SCH (20:37)
[2020-03-04] MEDS: CEFTRIAXONE 1 GM/D5W RTU 1 GM/50 ML RTUPB IV SCH (20:37)
[2020-03-04] MEDS ORDERED: (PENDING PHARMACY ID) (Travoprost [Travoprost] 1 DROP) OS SCH (22:00)
[2020-03-04] MEDS: SIMVASTATIN 10 MG TABLET PO SCH (22:52)
[2020-03-04] MEDS: LATANOPROST 0.005% OPH SOLN 2.5 ML OS SCH (22:53)
[2020-03-05] MEDS: PANTOPRAZOLE SODIUM 40 MG TABLET.DR PO SCH (05:40)
[2020-03-05] MEDS: NORMAL SALINE 1000 ML 1,000 ML IV PRN (05:40)
[2020-03-05 06:26] LABS: APPEARANCE,URINE CLEAR; BILIRUBIN,URINE NEGATIVE (NEGATIVE); COLOR,URINE STRAW; GLUCOSE, URINE NEGATIVE (NEGATIVE); KETONES,URINE TRACE mg/dL (NEGATIVE); LEUKOCYTE ESTERASE,URINE NEGATIVE (NEGATIVE); NITRITE,URINE NEGATIVE (NEGATIVE); PROTEIN,URINE NEGATIVE (NEGATIVE); URINE SPECIFIC GRAVITY 1.038; UROBILINOGEN,URINE NEGATIVE mg/dL (<2.0)
[2020-03-05] MEDS: INSULIN LISPRO 100 UNIT/ML 3 ML VIAL SUBCUT SCH ×4 (07:40→21:25)
[2020-03-05] MEDS ORDERED: (PENDING PHARMACY ID) (Metformin Hcl [Metformin Hcl] 1,000 MG) PO SCH (10:00)
[2020-03-05] MEDS: RAMIPRIL 5 MG CAPSULE PO SCH (10:23)
[2020-03-05] MEDS: METFORMIN HCL 500 MG TABLET PO SCH ×2 (10:23→17:24)
[2020-03-05] MEDS: BRIMONIDINE TARTRATE 0.2% OPH SOLN 5 ML OS SCH ×2 (10:23→17:34)
[2020-03-05] MEDS: CETIRIZINE 5 MG TABLET PO SCH (10:24)
[2020-03-05] MEDS: ENOXAPARIN SODIUM INJ 40 MG/0.4 ML DISP.SYRIN SUBCUT SCH (10:24)
[2020-03-05 10:31] LABS: ANION GAP 9 (5-19); BLOOD UREA NITROGEN 14 mg/dL (7-20); CALCIUM 9.6 mg/dL (8.4-10.2); CARBON DIOXIDE 24 mmol/L (22-30); CHLORIDE 104 mmol/L (98-107); GLUCOSE 121 mg/dL (75-110); POTASSIUM 4.8 mmol/L (3.6-5.0)
[2020-03-05 12:01] LABS: ABSOLUTE EOSINOPHILS # (AUTO) 0.1 10^3/uL (0.0-0.6); ABSOLUTE LYMPHOCYTES (AUTO) 1.7 10^3/uL (0.5-4.7); ABSOLUTE MONOCYTES (AUTO) 0.7 10^3/uL (0.1-1.4); ABSOLUTE NEUT (AUTO) 5.8 10^3/uL (1.7-8.2); BASOPHILS % (AUTO) 0.5 % (0-2); EOSINOPHILS % (AUTO) 0.6 % (0-6); HEMOGLOBIN 12.1 g/dL (12.0-15.5); LYMPHOCYTES % (AUTO) 20.4 % (13-45); MEAN CORPUSCULAR HEMOGLOBIN 24.3 pg (27.0-33.4); MEAN CORPUSCULAR HGB CONC 31.7 g/dL (32.0-36.0); MEAN CORPUSCULAR VOLUME 77 fl (80-97); MONOCYTES % (AUTO) 8.7 % (3-13); PLATELET COUNT 273 10^3/uL (150-450); RED BLOOD COUNT 4.97 10^6/uL (3.72-5.28); RED CELL DISTRIBUTION WIDTH 14.3 % (11.5-14.0); SEGMENTED NEUTROPHILS % (AUTO) 69.8 % (42-78); TOTAL CELLS COUNTED % (AUTO) 100 %; WHITE BLOOD COUNT 8.3 10^3/uL (4.0-10.5)
[2020-03-05] MEDS ORDERED: BISACODYL 10 MG SUPP.RECT PR ONE ×2 (13:18→17:30)
--- NOTE | 2020-03-05 13:36 | PDOC H&P ---
History of Present Illness Admission Date/PCP: 03/04/20 17:28 [facility] Patient complains of: Abdominal pain History of Present Illness: GERTRUDE GRACIA is a 74 year old female patient known to my practice who presented to the office earlier today due to onset of abdominal pain this morning. Patient described pain as cramping, localized to mid abdomen region but radiate across to her flanks. She reported associated nausea and episode of vomiting before arrival and while in the examination room today. Her last bowel movement was the morning before presentation ad described as watery. She denied any chest pain or difficulty with breathing. No reported fever,chills, or outbreak of sweating. In view of her acute presentation and prostration with abdominal pain, nausea and vomiting she was advised hospitalization to observation bed for further evaluation and management. Unfortunately, there is no available bed for admission at the time and she was referred to the ED. Her morbidities are as listed below. Past Medical History Cardiac Medical History: Reports: Hypertension Denies: Coronary Artery Disease, Myocardial Infarction Pulmonary Medical History: Denies: Asthma, Bronchitis, Chronic Obstructive Pulmonary Disease (COPD), Pneumonia Neurological Medical History: Denies: Seizures Endocrine Medical History: Reports: Diabetes Mellitus Type 2 Musculoskeltal Medical History: Reports: Arthritis - BILATERAL LOWER EXTREMITIES Hematology: Reports: Anemia Past Surgical History Past Surgical History: Reports: Other - Cataract surgery on the right Social History Smoking Status: Former Smoker - Advance Directive Resuscitation Status: Full Code Family History Family History: Reviewed & Not Pertinent Parental Family History Reviewed: Yes Children Family History Reviewed: Yes Sibling(s) Family History Reviewed.: Yes Medication/Allergy Home Medications: Calcium Carbonate/Vitamin D3 [Oyster Shell 500-Vit D3 200 Tb] 1 each PO DAILY 01/10/13 Cyanocobalamin (Vitamin B-12) [Vitamin B-12] 1,000 mcg PO DAILY 10/01/18 Ferrous Sulfate [Ferosul] 325 mg PO DAILY 10/01/18 Gabapentin [Neurontin 100 mg Capsule] 100 mg PO TID 10/01/18 Levocetirizine Dihydrochloride [Xyzal] 5 mg PO DAILY 10/01/18 Linaclotide [Linzess] 290 mcg PO DAILY 10/01/18 Metformin HCl 1,000 mg PO BID 10/01/18 Olopatadine HCl [Pataday] 1 drop OU DAILY 10/01/18 Omeprazole 40 mg PO QAM 10/01/18 Ramipril [Altace] 5 mg PO DAILY 10/01/18 Simvastatin [Zocor 20 mg Tablet] 20 mg PO QHS 10/01/18 Brimonidine Tartrate [Alphagan 0.2% Oph Soln 5 ml] 1 drop OS BID 03/04/20 Dextran 70/Hypromellose [Artificial Tears] 1 drop OU TID 03/04/20 Travoprost 1 drop OS QHS 03/04/20 Allergies/Adverse Reactions: No Known Allergies Allergy (Verified 10/01/18 11:46) Review of Systems Constitutional: ABSENT: chills, fever(s), headache(s), weight gain, weight loss Eyes: ABSENT: visual disturbances Ears: ABSENT: hearing changes Cardiovascular: ABSENT: chest pain, dyspnea on exertion, edema, orthropnea, palpitations Respiratory: ABSENT: cough, hemoptysis Gastrointestinal: PRESENT: abdominal pain, diarrhea, nausea, vomiting. ABSENT: constipation, hematemesis, hematochezia Genitourinary: ABSENT: dysuria, hematuria Musculoskeletal: ABSENT: joint swelling Integumentary: ABSENT: rash, wounds Neurological: ABSENT: abnormal gait, abnormal speech, confusion, dizziness, focal weakness, syncope Psychiatric: ABSENT: anxiety, depression, homidical ideation, suicidal ideation Endocrine: ABSENT: cold intolerance, heat intolerance, menstrual abnormalities, polydipsia, polyuria Hematologic/Lymphatic: ABSENT: easy bleeding, easy bruising, lymphadenopathy Physical Exam Vital Signs: Temp Pulse Resp BP Pulse Ox 97.6 F 91 22 H 130/58 H 99 03/04/20 17:16 03/04/20 14:33 03/04/20 14:33 03/04/20 14:33 03/04/20 14:33 Intake & Output 03/03/20 03/04/20 03/05/20 06:59 06:59 06:59 Weight 92.8 kg General appearance: PRESENT: mild distress - to abdominal examination with exptressed tendernesss. Head exam: PRESENT: atraumatic, normocephalic Eye exam: PRESENT: conjunctiva pink, EOMI, PERRLA. ABSENT: scleral icterus Ear exam: PRESENT: normal external ear exam Mouth exam: PRESENT: moist, tongue midline Neck exam: PRESENT: full ROM. ABSENT: carotid bruit, JVD, lymphadenopathy, thyromegaly Respiratory exam: PRESENT: clear to auscultation frankie Cardiovascular exam: PRESENT: RRR. ABSENT: diastolic murmur, rubs, systolic murmur Pulses: PRESENT: normal dorsalis pedis pul, +2 pedal pulses bilateral Vascular exam: PRESENT: normal capillary refill GI/Abdominal exam: PRESENT: normal bowel sounds, soft, tenderness - nonspecific expressed tenderness to palpation and more localized to lower quadrants. ABSENT: distended, guarding, mass, organolmegaly, rebound Rectal exam: PRESENT: deferred Extremities exam: ABSENT: pedal edema Neurological exam: PRESENT: alert, awake, oriented to person, oriented to place, oriented to time, oriented to situation, CN II-XII grossly intact. ABSENT: motor sensory deficit Psychiatric exam: PRESENT: appropriate affect, normal mood. ABSENT: homicidal ideation, suicidal ideation Skin exam: PRESENT: dry, intact, warm. ABSENT: cyanosis, rash Results Laboratory Results: 03/04/20 16:00 03/04/20 17:09 03/04/20 03/04/20 03/04/20 16:00 16:00 17:09 WBC 12.4 H RBC 5.68 H Hgb 13.8 Hct 44.0 MCV 77 L MCH 24.2 L MCHC 31.3 L RDW 14.6 H Plt Count 273 Seg Neutrophils % 81.0 H Sodium Cancelled 138.5 Potassium Cancelled 4.2 Chloride Cancelled 108 H Carbon Dioxide Cancelled 21 L Anion Gap Cancelled 10 BUN Cancelled 13 Creatinine Cancelled 0.94 Est GFR ( Amer) Cancelled > 60 Est GFR (Non-Af Amer) Cancelled Glucose Cancelled 154 H Calcium Cancelled 9.8 Total Bilirubin Cancelled 0.6 AST Cancelled 20 Alkaline Phosphatase Cancelled 114 Total Protein Cancelled 7.5 Albumin Cancelled 4.5 Urine Color Urine Appearance Urine pH Ur Specific [place] Urine Protein Urine Glucose (UA) Urine Ketones Urine Blood Urine Nitrite Ur Leukocyte Esterase Urine WBC (Auto) Urine RBC (Auto) 03/04/20 17:43 WBC RBC Hgb Hct MCV MCH MCHC RDW Plt Count Seg Neutrophils % Sodium Potassium Chloride Carbon Dioxide Anion Gap BUN Creatinine Est GFR ( Amer) Est GFR (Non-Af Amer) Glucose Calcium Total Bilirubin AST Alkaline Phosphatase Total Protein Albumin Urine Color Cancelled Urine Appearance Cancelled Urine pH Cancelled Ur Specific [place] Cancelled Urine Protein Cancelled Urine Glucose (UA) Cancelled Urine Ketones Cancelled Urine Blood Cancelled Urine Nitrite Cancelled Ur Leukocyte Esterase Cancelled Urine WBC (Auto) Cancelled Urine RBC (Auto) Cancelled Impressions: Acute Abdomen Series 03/04/20 00:00 IMPRESSION: No evidence of acute intrathoracic process. No definitive evidence of obstruction or other acute intra-abdominal process. Assessment & Plan - Diagnosis (1) Nausea & vomiting Qualifiers: Vomiting type: unspecified Vomiting Intractability: unspecified Qualified Code(s): R11.2 - Nausea with vomiting, unspecified Is this a current diagnosis for this admission?: Yes Plan: See admitting attending physician orders for details about care plan. (2) Abdominal pain of unknown etiology Is this a current diagnosis for this admission?: Yes Plan: See admitting attending physician orders for details about care plan. (3) Diabetes mellitus type 2 in nonobese Is this a current diagnosis for this admission?: Yes Plan: See admitting attending physician orders for details about care plan. (4) HTN (hypertension) Qualifiers: Hypertension type: essential hypertension Qualified Code(s): I10 - Essential (primary) hypertension Is this a current diagnosis for this admission?: Yes Plan: See admitting attending physician orders for details about care plan. (5) HLD (hyperlipidemia) Qualifiers: Hyperlipidemia type: unspecified Qualified Code(s): E78.5 - Hyperlipidemia, unspecified Is this a current diagnosis for this admission?: Yes Plan: See admitting attending physician orders for details about care plan. (6) Vitamin D deficiency Is this a current diagnosis for this admission?: Yes Plan: See admitting attending physician orders for details about care plan. (7) Degenerative joint disease involving multiple joints on both sides of body Is this a current diagnosis for this admission?: Yes Plan: See admitting attending physician orders for details about care plan. (8) GERD (gastroesophageal reflux disease) Qualifiers: Esophagitis presence: esophagitis presence not specified Qualified Code(s): K21.9 - Gastro-esophageal reflux disease without esophagitis Is this a current diagnosis for this admission?: Yes Plan: See admitting attending physician orders for details about care plan. (9) Primary open-angle glaucoma, bilateral, indeterminate stage Is this a current diagnosis for this admission?: Yes Plan: See admitting attending physician orders for details about care plan. - Time Time Spent: 50 to 70 Minutes Medications reviewed and adjusted accordingly: Yes Anticipated Discharge Disposition: Intermediate Care Facility Anticipated Discharge Timeframe: within 48 hours - Inpatient Certification Based on my medical assessment, after consideration of the patient's comorbidities, presenting symptoms, or acuity I expect that the services needed warrant INPATIENT care.: Yes I certify that my determination is in accordance with my understanding of Medicare's requirements for reasonable and necessary INPATIENT services [42 CFR 412.3e].: Yes Medical Necessity: Significant Comorbidiites Make Outpatient Treatment Too Risky, Need Close Monitoring Due to Risk of Patient Decompensation, Need For IV Fluids, Need for IV Antibiotics, Risk of Complication if Not Cared For in Hospital, Risk of Diagnosis Which Will Require Inpatient Eval/Care/Monitoring Post Hospital Care: D/C Sports Development Officer Documentation - Plan Summary Plan Summary: See admitting attending physician orders for details about care plan.
--- NOTE | 2020-03-05 13:44 | PDOC PROGRESS REPORT ---
Subjective Progress Note for:: 03/05/20 Subjective:: Patient denied any recurrent nausea, vomiting, or abdominal pain since admission. No bowel movement. Tolerated regular consistency diet. No chest pain or difficulty with breathing. No fever or chills. Reason For Visit: DIABETIC MELLITUS TYPE 2,HYPERTENSION,GERD, Physical Exam Vital Signs: Temp Pulse Resp BP Pulse Ox 97.5 F 66 18 123/52 L 100 03/05/20 12:00 03/05/20 12:00 03/05/20 12:00 03/05/20 12:00 03/05/20 12:00 Intake & Output 03/04/20 03/05/20 03/06/20 06:59 06:59 06:59 Intake Total 170 Output Total 500 Balance -330 Weight 62.1 kg General appearance: PRESENT: no acute distress Head exam: PRESENT: atraumatic, normocephalic Eye exam: PRESENT: conjunctiva pink, EOMI, PERRLA. ABSENT: scleral icterus Mouth exam: PRESENT: moist Neck exam: PRESENT: full ROM. ABSENT: carotid bruit, JVD, lymphadenopathy, thyromegaly Respiratory exam: PRESENT: clear to auscultation frankie Cardiovascular exam: PRESENT: RRR, +S1, +S2. ABSENT: diastolic murmur, rubs, systolic murmur Vascular exam: ABSENT: pallor GI/Abdominal exam: PRESENT: normal bowel sounds, soft. ABSENT: distended, guarding, mass, organolmegaly, rebound, tenderness Extremities exam: ABSENT: pedal edema Neurological exam: PRESENT: alert, awake. ABSENT: motor sensory deficit Psychiatric exam: PRESENT: appropriate affect, normal mood. ABSENT: homicidal ideation, suicidal ideation Skin exam: PRESENT: dry, intact, warm. ABSENT: cyanosis Results Laboratory Results: 03/05/20 11:42 03/05/20 09:20 03/04/20 03/04/20 03/04/20 16:00 16:00 17:09 WBC 12.4 H RBC 5.68 H Hgb 13.8 Hct 44.0 MCV 77 L MCH 24.2 L MCHC 31.3 L RDW 14.6 H Plt Count 273 Seg Neutrophils % 81.0 H Sodium Cancelled 138.5 Potassium Cancelled 4.2 Chloride Cancelled 108 H Carbon Dioxide Cancelled 21 L Anion Gap Cancelled 10 BUN Cancelled 13 Creatinine Cancelled 0.94 Est GFR ( Amer) Cancelled > 60 Est GFR (Non-Af Amer) Cancelled Glucose Cancelled 154 H Calcium Cancelled 9.8 Total Bilirubin Cancelled 0.6 AST Cancelled 20 Alkaline Phosphatase Cancelled 114 Total Protein Cancelled 7.5 Albumin Cancelled 4.5 Urine Color Urine Appearance Urine pH Ur Specific [place] Urine Protein Urine Glucose (UA) Urine Ketones Urine Blood Urine Nitrite Ur Leukocyte Esterase Urine WBC (Auto) Urine RBC (Auto) 03/04/20 03/05/20 03/05/20 17:43 05:48 09:20 WBC Cancelled RBC Cancelled Hgb Cancelled Hct Cancelled MCV Cancelled MCH Cancelled MCHC Cancelled RDW Cancelled Plt Count Cancelled Seg Neutrophils % Cancelled Sodium Potassium Chloride Carbon Dioxide Anion Gap BUN Creatinine Est GFR ( Amer) Est GFR (Non-Af Amer) Glucose Calcium Total Bilirubin AST Alkaline Phosphatase Total Protein Albumin Urine Color Cancelled STRAW Urine Appearance Cancelled CLEAR Urine pH Cancelled 6.0 Ur Specific [place] Cancelled 1.038 Urine Protein Cancelled NEGATIVE Urine Glucose (UA) Cancelled NEGATIVE Urine Ketones Cancelled TRACE H Urine Blood Cancelled NEGATIVE Urine Nitrite Cancelled NEGATIVE Ur Leukocyte Esterase Cancelled NEGATIVE Urine WBC (Auto) Cancelled 1 Urine RBC (Auto) Cancelled 1 03/05/20 03/05/20 09:20 11:42 WBC 8.3 RBC 4.97 Hgb 12.1 Hct 38.0 MCV 77 L MCH 24.3 L MCHC 31.7 L RDW 14.3 H Plt Count 273 Seg Neutrophils % 69.8 Sodium 136.5 L Potassium 4.8 Chloride 104 Carbon Dioxide 24 Anion Gap 9 BUN 14 Creatinine 1.00 Est GFR ( Amer) > 60 Est GFR (Non-Af Amer) Glucose 121 H Calcium 9.6 Total Bilirubin AST Alkaline Phosphatase Total Protein Albumin Urine Color Urine Appearance Urine pH Ur Specific [place] Urine Protein Urine Glucose (UA) Urine Ketones Urine Blood Urine Nitrite Ur Leukocyte Esterase Urine WBC (Auto) Urine RBC (Auto) Impressions: Abdomen/Pelvis CT 03/04/20 00:00 IMPRESSION: Multiple dilated small bowel loops in the right lower quadrant surrounding surgical sutures, which may represent developing bowel obstruction or ileus secondary to adhesions. Acute Abdomen Series 03/04/20 00:00 IMPRESSION: No evidence of acute intrathoracic process. No definitive evidence of obstruction or other acute intra-abdominal process. Assessment & Plan - Diagnosis (1) Nausea & vomiting Qualifiers: Vomiting type: unspecified Vomiting Intractability: unspecified Qualified Code(s): R11.2 - Nausea with vomiting, unspecified Is this a current diagnosis for this admission?: Yes (2) Abdominal pain of unknown etiology Is this a current diagnosis for this admission?: Yes (3) Diabetes mellitus type 2 in nonobese Is this a current diagnosis for this admission?: Yes (4) HTN (hypertension) Qualifiers: Hypertension type: essential hypertension Qualified Code(s): I10 - Essential (primary) hypertension Is this a current diagnosis for this admission?: Yes (5) HLD (hyperlipidemia) Qualifiers: Hyperlipidemia type: unspecified Qualified Code(s): E78.5 - Hyperlipidemia, unspecified Is this a current diagnosis for this admission?: Yes (6) Vitamin D deficiency Is this a current diagnosis for this admission?: Yes (7) Degenerative joint disease involving multiple joints on both sides of body Is this a current diagnosis for this admission?: Yes (8) GERD (gastroesophageal reflux disease) Qualifiers: Esophagitis presence: esophagitis presence not specified Qualified Code(s): K21.9 - Gastro-esophageal reflux disease without esophagitis Is this a current diagnosis for this admission?: Yes (9) Primary open-angle glaucoma, bilateral, indeterminate stage Is this a current diagnosis for this admission?: Yes - Time Time Spent with patient: 25-34 minutes Level of Care: MEDICAL Medications reviewed and adjusted accordingly: Yes Anticipated discharge: Home Anticipated DC Timeframe: within 24 hours - Inpatient Certification Based on my medical assessment, after consideration of the patient's comorbidities, presenting symptoms, or acuity I expect that the services needed warrant INPATIENT care.: Yes I certify that my determination is in accordance with my understanding of Medicare's requirements for reasonable and necessary INPATIENT services [42 CFR 412.3e].: Yes Medical Necessity: Significant Comorbidiites Make Outpatient Treatment Too Risky, Need Close Monitoring Due to Risk of Patient Decompensation, Need For IV Fluids, Risk of Complication if Not Cared For in Hospital, Risk of Diagnosis Which Will Require Inpatient Eval/Care/Monitoring - Plan Summary Plan Summary: maintain n IV Rocephin. Follow up on culture findings. Her CT abdomen and pelvis suggested possible ilius versus obstruction due to multiple air fluid levels in RLQ region. Patient reported no bowel movement since admission but resolved sy mptoms and tolerating oral feeding. I will change her diet consistency and administer Dulcolax suppository 10 mg x 1 dose now. Follow up possible bowel movement.
[2020-03-05] MEDS: CEFTRIAXONE 1 GM/D5W RTU 1 GM/50 ML RTUPB IV SCH (17:23)
[2020-03-05] MEDS: SIMVASTATIN 10 MG TABLET PO SCH (21:26)
[2020-03-05] MEDS: LATANOPROST 0.005% OPH SOLN 2.5 ML OS SCH (21:26)
[2020-03-06] MEDS: NORMAL SALINE 1000 ML 1,000 ML IV PRN (04:18)
[2020-03-06] MEDS: PANTOPRAZOLE SODIUM 40 MG TABLET.DR PO SCH (06:24)
[2020-03-06] MEDS: INSULIN LISPRO 100 UNIT/ML 3 ML VIAL SUBCUT SCH ×4 (08:43→22:53)
[2020-03-06] MEDS: RAMIPRIL 5 MG CAPSULE PO SCH (10:28)
[2020-03-06] MEDS: CETIRIZINE 5 MG TABLET PO SCH (10:28)
[2020-03-06] MEDS: METFORMIN HCL 500 MG TABLET PO SCH ×2 (10:28→17:08)
[2020-03-06] MEDS: ENOXAPARIN SODIUM INJ 40 MG/0.4 ML DISP.SYRIN SUBCUT SCH (10:28)
[2020-03-06] MEDS: BRIMONIDINE TARTRATE 0.2% OPH SOLN 5 ML OS SCH ×2 (10:30→17:09)
--- NOTE | 2020-03-06 13:26 | PDOC PROGRESS REPORT ---
Subjective Progress Note for:: 03/06/20 Subjective:: Patient reported improved abdominal pain and satisfactory bowel movement. No nausea or vomiting. No chest pain or difficulty with breathing. No fever or chills. Blood culture growing gram positive cocci in clusters with pending sensitivity. Reason For Visit: DIABETIC MELLITUS TYPE 2,HYPERTENSION,GERD, Physical Exam Vital Signs: Temp Pulse Resp BP Pulse Ox 98.0 F 67 18 140/56 H 100 03/06/20 08:16 03/06/20 10:52 03/06/20 10:52 03/06/20 10:52 03/06/20 10:52 Intake & Output 03/05/20 03/06/20 03/07/20 06:59 06:59 06:59 Intake Total 170 1770 Output Total 500 Balance -330 1770 Weight 62.1 kg 66.7 kg Physical Exam: General appearance: PRESENT: no acute distress Head exam: PRESENT: atraumatic, normocephalic Eye exam: PRESENT: conjunctiva pink, EOMI, PERRLA. ABSENT: pallor, scleral icterus Mouth exam: PRESENT: moist Neck exam: PRESENT: full ROM. ABSENT: carotid bruit, JVD, lymphadenopathy, thy romegaly Respiratory exam: PRESENT: clear to auscultation frankie Cardiovascular exam: PRESENT: RRR, +S1, +S2. ABSENT: diastolic murmur, rubs, systolic murmur GI/Abdominal exam: PRESENT: normal bowel sounds, soft. ABSENT: distended, guarding, mass, organomegaly, rebound, tenderness Extremities exam: ABSENT: pedal edema Neurological exam: PRESENT: alert, awake. ABSENT: motor sensory deficit Psychiatric exam: PRESENT: appropriate affect, normal mood. ABSENT: homicidal ideation, suicidal ideation Skin exam: PRESENT: dry, intact, warm. ABSENT: cyanosis Results Laboratory Results: 03/05/20 11:42 03/05/20 09:20 03/04/20 17:43 Catheterized Urine Urine Culture - Final NO GROWTH 2 DAYS Impressions: Abdomen/Pelvis CT 03/04/20 00:00 IMPRESSION: Multiple dilated small bowel loops in the right lower quadrant surrounding surgical sutures, which may represent developing bowel obstruction or ileus secondary to adhesions. Acute Abdomen Series 03/04/20 00:00 IMPRESSION: No evidence of acute intrathoracic process. No definitive evidence of obstruction or other acute intra-abdominal process. Assessment & Plan - Diagnosis (1) Nausea & vomiting Qualifiers: Vomiting type: unspecified Vomiting Intractability: unspecified Qualified Code(s): R11.2 - Nausea with vomiting, unspecified Is this a current diagnosis for this admission?: Yes (2) Abdominal pain of unknown etiology Is this a current diagnosis for this admission?: Yes (3) Diabetes mellitus type 2 in nonobese Is this a current diagnosis for this admission?: Yes (4) HTN (hypertension) Qualifiers: Hypertension type: essential hypertension Qualified Code(s): I10 - Essential (primary) hypertension Is this a current diagnosis for this admission?: Yes (5) HLD (hyperlipidemia) Qualifiers: Hyperlipidemia type: unspecified Qualified Code(s): E78.5 - Hyperlipidemia, unspecified Is this a current diagnosis for this admission?: Yes (6) Vitamin D deficiency Is this a current diagnosis for this admission?: Yes (7) Degenerative joint disease involving multiple joints on both sides of body Is this a current diagnosis for this admission?: Yes (8) GERD (gastroesophageal reflux disease) Qualifiers: Esophagitis presence: esophagitis presence not specified Qualified Code(s): K21.9 - Gastro-esophageal reflux disease without esophagitis Is this a current diagnosis for this admission?: Yes (9) Primary open-angle glaucoma, bilateral, indeterminate stage Is this a current diagnosis for this admission?: Yes (10) Gram-positive cocci in clusters Is this a current diagnosis for this admission?: Yes Plan: Continue IV Rocephin coverage, follow up on culture organism identification and sensitivity. - Time Time Spent with patient: 25-34 minutes Level of Care: MEDICAL Anticipated discharge: Home Anticipated DC Timeframe: Other - Inpatient Certification Based on my medical assessment, after consideration of the patient's dangelo rbidities, presenting symptoms, or acuity I expect that the services needed warrant INPATIENT care.: Yes I certify that my determination is in accordance with my understanding of Medicare's requirements for reasonable and necessary INPATIENT services [42 CFR 412.3e].: Yes Medical Necessity: Significant Comorbidiites Make Outpatient Treatment Too Risky, Need Close Monitoring Due to Risk of Patient Decompensation, Need For IV Fluids, Need for IV Antibiotics, Risk of Complication if Not Cared For in Hospital, Risk of Diagnosis Which Will Require Inpatient Eval/Care/Monitoring Post Hospital Care: D/C Ancillary Services Manager Therapy Documentation - Plan Summary Plan Summary: Continue current medication management. Follow up on culture results.
[2020-03-06] MEDS: CEFTRIAXONE 1 GM/D5W RTU 1 GM/50 ML RTUPB IV SCH (17:08)
[2020-03-06] MEDS: SIMVASTATIN 10 MG TABLET PO SCH (22:55)
[2020-03-06] MEDS: LATANOPROST 0.005% OPH SOLN 2.5 ML OS SCH (23:10)
[2020-03-07] MEDS: PANTOPRAZOLE SODIUM 40 MG TABLET.DR PO SCH (05:50)
[2020-03-07] MEDS: INSULIN LISPRO 100 UNIT/ML 3 ML VIAL SUBCUT SCH ×4 (08:44→22:50)
[2020-03-07] MEDS: RAMIPRIL 5 MG CAPSULE PO SCH (10:16)
[2020-03-07] MEDS: BRIMONIDINE TARTRATE 0.2% OPH SOLN 5 ML OS SCH ×2 (10:16→17:32)
[2020-03-07] MEDS: CETIRIZINE 5 MG TABLET PO SCH (10:17)
[2020-03-07] MEDS: METFORMIN HCL 500 MG TABLET PO SCH ×2 (10:17→17:32)
[2020-03-07] MEDS: ENOXAPARIN SODIUM INJ 40 MG/0.4 ML DISP.SYRIN SUBCUT SCH (10:18)
[2020-03-07] MEDS: CEFTRIAXONE 1 GM/D5W RTU 1 GM/50 ML RTUPB IV SCH (17:31)
--- NOTE | 2020-03-07 18:03 | PDOC PROGRESS REPORT ---
Subjective Progress Note for:: 03/07/20 Subjective:: Patient seen by the bedside, she says she feels well, the blood culture preliminary result demonstrated gram-positive cocci in clusters final result pending patient presently empirically on IV Rocephin Reason For Visit: GRAM POSIVE COCCI SEPSIS;ACUTE ABDOMINAL PAIN WITH Physical Exam Vital Signs: Temp Pulse Resp BP Pulse Ox 97.9 F 61 16 134/60 H 100 03/07/20 15:57 03/07/20 15:57 03/07/20 15:57 03/07/20 15:57 03/07/20 15:57 Intake & Output 03/06/20 03/07/20 03/08/20 06:59 06:59 06:59 Intake Total 1770 50 Balance 1770 50 Weight 66.7 kg 66.5 kg General appearance: PRESENT: no acute distress Head exam: PRESENT: atraumatic, normocephalic Eye exam: PRESENT: conjunctiva pink, EOMI, PERRLA Ear exam: PRESENT: normal external ear exam Mouth exam: PRESENT: moist, tongue midline Neck exam: PRESENT: full ROM Respiratory exam: PRESENT: clear to auscultation frankie Cardiovascular exam: PRESENT: RRR, +S1, +S2 Pulses: PRESENT: normal dorsalis pedis pul, +2 pedal pulses bilateral Vascular exam: PRESENT: normal capillary refill GI/Abdominal exam: PRESENT: normal bowel sounds, soft Rectal exam: PRESENT: deferred Neurological exam: PRESENT: alert Psychiatric exam: PRESENT: appropriate affect, normal mood Skin exam: PRESENT: dry, intact, warm. ABSENT: cyanosis, rash Results Laboratory Results: 03/05/20 11:42 03/05/20 09:20 Impressions: Abdomen/Pelvis CT 03/04/20 00:00 IMPRESSION: Multiple dilated small bowel loops in the right lower quadrant surrounding surgical sutures, which may represent developing bowel obstruction or ileus secondary to adhesions. Acute Abdomen Series 03/04/20 00:00 IMPRESSION: No evidence of acute intrathoracic process. No definitive evidence of obstruction or other acute intra-abdominal process. Assessment & Plan - Diagnosis (1) Nausea with vomiting, unspecified Qualifiers: Vomiting Intractability: intractable Is this a current diagnosis for this admission?: Yes (2) Unspecified abdominal pain Qualifiers: Abdominal location: unspecified location Qualified Code(s): R10.9 - Unspecified abdominal pain Is this a current diagnosis for this admission?: Yes (3) Other general symptoms and signs Is this a current diagnosis for this admission?: Yes - Time Time Spent with patient: Less than 15 minutes Level of Care: MEDICAL Anticipated discharge: Home Anticipated DC Timeframe: within 48 hours
[2020-03-07] MEDS: LATANOPROST 0.005% OPH SOLN 2.5 ML OS SCH (22:10)
[2020-03-07] MEDS: SIMVASTATIN 10 MG TABLET PO SCH (22:10)
[2020-03-08] MEDS: PANTOPRAZOLE SODIUM 40 MG TABLET.DR PO SCH (05:34)
[2020-03-08] MEDS: INSULIN LISPRO 100 UNIT/ML 3 ML VIAL SUBCUT SCH ×4 (08:57→21:49)
[2020-03-08] MEDS: ENOXAPARIN SODIUM INJ 40 MG/0.4 ML DISP.SYRIN SUBCUT SCH (09:19)
[2020-03-08] MEDS: METFORMIN HCL 500 MG TABLET PO SCH ×2 (09:19→17:48)
[2020-03-08] MEDS: CETIRIZINE 5 MG TABLET PO SCH (09:24)
[2020-03-08] MEDS: RAMIPRIL 5 MG CAPSULE PO SCH (09:25)
[2020-03-08] MEDS: BRIMONIDINE TARTRATE 0.2% OPH SOLN 5 ML OS SCH ×2 (09:26→17:48)
--- NOTE | 2020-03-08 11:43 | PDOC PROGRESS REPORT ---
Subjective Progress Note for:: 03/08/20 Subjective:: Patient seen by the bedside, she has no symptoms, the blood culture grew staph epi most likely contamination, there is no device unlikely to be a true infection, DC IV Rocephin Reason For Visit: GRAM POSIVE COCCI SEPSIS;ACUTE ABDOMINAL PAIN WITH Physical Exam Vital Signs: Temp Pulse Resp BP Pulse Ox 98.2 F 66 15 132/57 H 100 03/08/20 08:00 03/08/20 08:00 03/08/20 08:00 03/08/20 08:00 03/08/20 08:00 Intake & Output 03/07/20 03/08/20 03/09/20 06:59 06:59 06:59 Intake Total 50 100 Balance 50 100 Weight 66.5 kg 65 kg General appearance: PRESENT: no acute distress Head exam: PRESENT: atraumatic, normocephalic Eye exam: PRESENT: conjunctiva pink, EOMI, PERRLA Ear exam: PRESENT: normal external ear exam Mouth exam: PRESENT: moist, tongue midline Neck exam: PRESENT: full ROM Respiratory exam: PRESENT: clear to auscultation frankie Cardiovascular exam: PRESENT: RRR, +S1, +S2 Pulses: PRESENT: normal dorsalis pedis pul, +2 pedal pulses bilateral Vascular exam: PRESENT: normal capillary refill GI/Abdominal exam: PRESENT: normal bowel sounds, soft Rectal exam: PRESENT: deferred Neurological exam: PRESENT: alert, CN II-XII grossly intact. ABSENT: motor sensory deficit Psychiatric exam: PRESENT: appropriate affect, normal mood Skin exam: PRESENT: dry, intact, warm Results Laboratory Results: 03/05/20 11:42 03/05/20 09:20 03/04/20 17:01 Blood Blood Culture - Final Staphylococcus Epidermidis Impressions: Abdomen/Pelvis CT 03/04/20 00:00 IMPRESSION: Multiple dilated small bowel loops in the right lower quadrant surrounding surgical sutures, which may represent developing bowel obstruction or ileus secondary to adhesions. Acute Abdomen Series 03/04/20 00:00 IMPRESSION: No evidence of acute intrathoracic process. No definitive evidence of obstruction or other acute intra-abdominal process. Assessment & Plan - Diagnosis (1) Nausea with vomiting, unspecified Qualifiers: Vomiting Intractability: intractable Is this a current diagnosis for this admission?: Yes (2) Unspecified abdominal pain Qualifiers: Abdominal location: unspecified location Qualified Code(s): R10.9 - Unspecified abdominal pain Is this a current diagnosis for this admission?: Yes (3) Other general symptoms and signs Is this a current diagnosis for this admission?: Yes - Time Time Spent with patient: Less than 15 minutes Level of Care: MEDICAL Anticipated discharge: Home Anticipated DC Timeframe: within 24 hours
[2020-03-08] MEDS: NORMAL SALINE 1000 ML 1,000 ML IV PRN ×2 (14:00→23:50)
[2020-03-08] MEDS: SIMVASTATIN 10 MG TABLET PO SCH (21:48)
[2020-03-08] MEDS: LATANOPROST 0.005% OPH SOLN 2.5 ML OS SCH (21:48)
[2020-03-09] MEDS: PANTOPRAZOLE SODIUM 40 MG TABLET.DR PO SCH (05:48)
[2020-03-09] MEDS: INSULIN LISPRO 100 UNIT/ML 3 ML VIAL SUBCUT SCH ×3 (08:19→16:01)
[2020-03-09] MEDS: RAMIPRIL 5 MG CAPSULE PO SCH (09:36)
[2020-03-09] MEDS: METFORMIN HCL 500 MG TABLET PO SCH ×2 (09:36→18:04)
[2020-03-09] MEDS: CETIRIZINE 5 MG TABLET PO SCH (09:37)
[2020-03-09] MEDS: BRIMONIDINE TARTRATE 0.2% OPH SOLN 5 ML OS SCH ×2 (09:39→18:04)
[2020-03-09] MEDS: ENOXAPARIN SODIUM INJ 40 MG/0.4 ML DISP.SYRIN SUBCUT SCH (09:58)
[2020-03-09] MEDS: NORMAL SALINE 1000 ML 1,000 ML IV PRN ×2 (10:00→22:15)
--- NOTE | 2020-03-09 11:52 | PDOC PROGRESS REPORT ---
Subjective Progress Note for:: 03/09/20 Subjective:: So far doing fine today. Patient denied any abdominal pain, nausea or vomiting. No chest pain or difficulty with breathing. No fever or chills. COVID-19 and blood culture results are pending. Bowel movement satisfactory., Transfer with one person assist as per nursing report. Reason For Visit: GRAM POSIVE COCCI SEPSIS;ACUTE ABDOMINAL PAIN WITH Physical Exam Vital Signs: Temp Pulse Resp BP Pulse Ox 97.9 F 63 18 131/61 H 100 03/09/20 11:13 03/09/20 11:13 03/09/20 11:13 03/09/20 11:13 03/09/20 11:13 Intake & Output 03/08/20 03/09/20 03/10/20 06:59 06:59 06:59 Intake Total 1833 1000 Balance 1833 1000 Weight 65 kg 66.5 kg Physical Exam: General appearance: PRESENT: no acute distress Head exam: PRESENT: atraumatic, normocephalic Eye exam: PRESENT: conjunctiva pink, EOMI, PERRLA. ABSENT: pallor, scleral icterus Mouth exam: PRESENT: moist Neck exam: PRESENT: full ROM. ABSENT: carotid bruit, JVD, lymphadenopathy, thyromegaly Respiratory exam: PRESENT: clear to auscultation frankie Cardiovascular exam: PRESENT: RRR, +S1, +S2. ABSENT: diastolic murmur, rubs, systolic murmur GI/Abdominal exam: PRESENT: normal bowel sounds, soft. ABSENT: distended, guarding, mass, organomegaly, rebound, tenderness Extremities exam: ABSENT: pedal edema Neurological exam: PRESENT: alert, awake. ABSENT: motor sensory deficit Psychiatric exam: PRESENT: appropriate affect, normal mood. ABSENT: homicidal ideation, suicidal ideation Skin exam: PRESENT: dry, intact, warm. ABSENT: cyanosis Results Laboratory Results: 03/05/20 11:42 03/05/20 09:20 03/04/20 17:01 Blood Blood Culture - Final Staphylococcus Epidermidis Impressions: Abdomen/Pelvis CT 03/04/20 00:00 IMPRESSION: Multiple dilated small bowel loops in the right lower quadrant surrounding surgical sutures, which may represent developing bowel obstruction or ileus secondary to adhesions. Acute Abdomen Series 03/04/20 00:00 IMPRESSION: No evidence of acute intrathoracic process. No definitive evidence of obstruction or other acute intra-abdominal process. Assessment & Plan - Diagnosis (1) Nausea & vomiting Qualifiers: Vomiting type: unspecified Vomiting Intractability: unspecified Qualified Code(s): R11.2 - Nausea with vomiting, unspecified Is this a current diagnosis for this admission?: Yes (2) Abdominal pain of unknown etiology Is this a current diagnosis for this admission?: Yes (3) Diabetes mellitus type 2 in nonobese Is this a current diagnosis for this admission?: Yes (4) HTN (hypertension) Qualifiers: Hypertension type: essential hypertension Qualified Code(s): I10 - Essen tial (primary) hypertension Is this a current diagnosis for this admission?: Yes (5) HLD (hyperlipidemia) Qualifiers: Hyperlipidemia type: unspecified Qualified Code(s): E78.5 - Hyperlipidemia, unspecified Is this a current diagnosis for this admission?: Yes (6) Vitamin D deficiency Is this a current diagnosis for this admission?: Yes (7) Degenerative joint disease involving multiple joints on both sides of body Is this a current diagnosis for this admission?: Yes (8) GERD (gastroesophageal reflux disease) Qualifiers: Esophagitis presence: esophagitis presence not specified Qualified Code(s): K21.9 - Gastro-esophageal reflux disease without esophagitis Is this a current diagnosis for this admission?: Yes (9) Primary open-angle glaucoma, bilateral, indeterminate stage Is this a current diagnosis for this admission?: Yes (10) Gram-positive cocci in clusters Is this a current diagnosis for this admission?: Yes - Time Time Spent with patient: 25-34 minutes Level of Care: MEDICAL Medications reviewed and adjusted accordingly: Yes Anticipated discharge: Other - shelter Anticipated DC Timeframe: within 48 hours - Inpatient Certification Based on my medical assessment, after consideration of the patient's comorbidities, presenting symptoms, or acuity I expect that the services needed warrant INPATIENT care.: Yes I certify that my determination is in accordance with my understanding of [facility]'s requirements for reasonable and necessary INPATIENT services [42 CFR 412.3e].: Yes Medical Necessity: Significant Comorbidiites Make Outpatient Treatment Too Risky, Need Close Monitoring Due to Risk of Patient Decompensation, Need For IV Fluids, Risk of Complication if Not Cared For in Hospital, Risk of Diagnosis Which Will Require Inpatient Eval/Care/Monitoring 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 Request PT evaluation for ambulatory safety. Continue all current medication management.
--- NOTE | 2020-03-09 12:21 | CDI QUERY ---
<OCTAVIA OLEARY - Last Filed: 03/09/20 12:19> CDI Query CDI Review: Your assistance with confirmation of a documented diagnosis is requested. Diagnosis: GRAM POSIVE COCCI SEPSIS Documentation in the medical record also includes [add information indicating support and lack of support]: Patient seen by the bedside, she has no symptoms, the blood culture grew staph epi most likely contamination, there is no device unlikely to be a true infection, DC IV Rocephin Based on your medical judgment, can you please clarify in themedical record whether: 1. This diagnosis is not confirmed and/or it has been ruled out. 2. This diagnosis is confirmed (please add additional supporting information to the medical record) Thank you for your consideration. PRASHANTH Gonzalez RN Clinical Bankman Physician Advisor <CAM CLARK - Last Filed: 03/09/20 12:27> CDI Query Agree with Query: No - Please direct to the appropriate MD for documentation clarification.
[2020-03-09 13:38] LABS: ABSOLUTE EOSINOPHILS # (AUTO) 0.1 10^3/uL (0.0-0.6); ABSOLUTE LYMPHOCYTES (AUTO) 2.2 10^3/uL (0.5-4.7); ABSOLUTE MONOCYTES (AUTO) 0.5 10^3/uL (0.1-1.4); ABSOLUTE NEUT (AUTO) 2.8 10^3/uL (1.7-8.2); BASOPHILS % (AUTO) 0.6 % (0-2); EOSINOPHILS % (AUTO) 1.7 % (0-6); HEMATOCRIT 34.6 % (36.0-47.0); LYMPHOCYTES % (AUTO) 39.9 % (13-45); MEAN CORPUSCULAR HEMOGLOBIN 24.2 pg (27.0-33.4); MEAN CORPUSCULAR HGB CONC 31.8 g/dL (32.0-36.0); MEAN CORPUSCULAR VOLUME 76 fl (80-97); MONOCYTES % (AUTO) 8.3 % (3-13); PLATELET COUNT 277 10^3/uL (150-450); RED BLOOD COUNT 4.54 10^6/uL (3.72-5.28); RED CELL DISTRIBUTION WIDTH 14.4 % (11.5-14.0); SEGMENTED NEUTROPHILS % (AUTO) 49.5 % (42-78); TOTAL CELLS COUNTED % (AUTO) 100 %; WHITE BLOOD COUNT 5.6 10^3/uL (4.0-10.5)
[2020-03-09 13:55] LABS: ANION GAP 5 (5-19); BLOOD UREA NITROGEN 2 mg/dL (7-20); CALCIUM 9.1 mg/dL (8.4-10.2); CARBON DIOXIDE 21 mmol/L (22-30); CHLORIDE 111 mmol/L (98-107); GLUCOSE 106 mg/dL (75-110)
[2020-03-09] MEDS: SIMVASTATIN 10 MG TABLET PO SCH (22:14)
[2020-03-09] MEDS: LATANOPROST 0.005% OPH SOLN 2.5 ML OS SCH (22:37)
[2020-03-10] MEDS: PANTOPRAZOLE SODIUM 40 MG TABLET.DR PO SCH (06:13)
[2020-03-10] MEDS: INSULIN LISPRO 100 UNIT/ML 3 ML VIAL SUBCUT SCH ×4 (06:13→16:45)
[2020-03-10] MEDS: CETIRIZINE 5 MG TABLET PO SCH (10:19)
[2020-03-10] MEDS: BRIMONIDINE TARTRATE 0.2% OPH SOLN 5 ML OS SCH (10:19)
[2020-03-10] MEDS: RAMIPRIL 5 MG CAPSULE PO SCH (10:19)
[2020-03-10] MEDS: METFORMIN HCL 500 MG TABLET PO SCH ×2 (10:19→17:30)
[2020-03-10] MEDS: ENOXAPARIN SODIUM INJ 40 MG/0.4 ML DISP.SYRIN SUBCUT SCH (10:20)
--- NOTE | 2020-03-10 15:50 | PDOC DISCHARGE SUMMARY ---
Impression - Admit/DC Date/PCP Admission Date/Primary Care Provider: 03/06/20 13:21 CAM CLARK Discharge Date: 03/10/20 - Discharge Diagnosis (1) Nausea & vomiting Is this a current diagnosis for this admission?: Yes (2) Abdominal pain of unknown etiology Is this a current diagnosis for this admission?: Yes (3) Diabetes mellitus type 2 in nonobese Is this a current diagnosis for this admission?: Yes (4) HTN (hypertension) Is this a current diagnosis for this admission?: Yes (5) HLD (hyperlipidemia) Is this a current diagnosis for this admission?: Yes (6) Vitamin D deficiency Is this a current diagnosis for this admission?: Yes (7) Degenerative joint disease involving multiple joints on both sides of body Is this a current diagnosis for this admission?: Yes (8) GERD (gastroesophageal reflux disease) Is this a current diagnosis for this admission?: Yes (9) Primary open-angle glaucoma, bilateral, indeterminate stage Is this a current diagnosis for this admission?: Yes (10) Gram-positive cocci in clusters Is this a current diagnosis for this admission?: Yes - Assessment Summary: Patient was admitted with possible enteritis symptoms and concern for infection in view of associated leukocytosis. Her blood culture was suggestive of contamination with staph. Epidermidis. She was initially covered with IV Rocephin that was subsequently discontinued and second bottle of her blood culture and urine culture were no growth after adequate incubation period. Her symptoms did resolved and despite her CT scan abdomen and pelvis showing possible early phase of small bowel obstruction she had and subsequently have had regular bowel movement after glycerine suppository administration. She tested negative for COVID-19. [facility] and follow up in the office as instructed upon discharge. - Additional Information Resuscitation Status: Full Code Discharge Diet: Cardiac, Diabetic Discharge Activity: Activity As Tolerated Referrals: CAM CLARK MD [Primary Care Provider] - 03/19/20 10:00 am Home Medications: Calcium Carbonate/Vitamin D3 [Oyster Shell 500-Vit D3 200 Tb] 1 each PO DAILY 01/10/13 Cyanocobalamin (Vitamin B-12) [Vitamin B-12] 1,000 mcg PO DAILY 10/01/18 Ferrous Sulfate [Ferosul] 325 mg PO DAILY 10/01/18 Gabapentin [Neurontin 100 mg Capsule] 100 mg PO TID 10/01/18 Levocetirizine Dihydrochloride [Xyzal] 5 mg PO DAILY 10/01/18 Linaclotide [Linzess] 290 mcg PO DAILY 10/01/18 Metformin HCl 1,000 mg PO BID 10/01/18 Olopatadine HCl [Pataday] 1 drop OU DAILY 10/01/18 Omeprazole 40 mg PO QAM 10/01/18 Ramipril [Altace] 5 mg PO DAILY 10/01/18 Simvastatin [Zocor 20 mg Tablet] 20 mg PO QHS 10/01/18 Brimonidine Tartrate [Alphagan 0.2% Oph Soln 5 ml] 1 drop OS BID 03/04/20 Dextran 70/Hypromellose [Artificial Tears] 1 drop OU TID 03/04/20 Travoprost 1 drop OS QHS 03/04/20 History of Present Illiness History of Present Illness: GERTRUDE GRACIA is a 74 year old female patient known to my practice who presented to the office earlier today due to onset of abdominal pain this morning. Patient described pain as cramping, localized to mid abdomen region but radiate across to her flanks. She reported associated nausea and episode of vomiting before arrival and while in the examination room today. Her last bowel movement was the morning before presentation ad described as watery. She denied any chest pain or difficulty with breathing. No reported fever, chills, or outbreak of sweating. In view of her acute presentation and prostration with abdominal pain, nausea and vomiting she was advised hospitalization to observation bed for further evaluation and management. Unfortunately, there is no available bed for admission at the time and she was referred to the ED. Her morbidities are as listed below. Hospital Course Hospital Course: Patient was admitted with possible enteritis symptoms and concern for infection in view of associated leukocytosis. Her blood culture was suggestive of contamination with staph. Epidermidis. She was initially covered with IV Rocephin that was subsequently discontinued and second bottle of her blood culture and urine culture were no growth after adequate incubation period. Her symptoms did resolved and despite her CT scan abdomen and pelvis showing possible early phase of small bowel obstruction she had and subsequently have had regular bowel movement after glycerine suppository administration. She tested negative for COVID-19. She will be [facility] today and follow up in the office as instructed upon discharge. Physical Exam Vital Signs: Temp Pulse Resp BP Pulse Ox 98.1 F 64 16 120/57 L 100 03/10/20 11:52 03/10/20 11:52 03/10/20 11:52 03/10/20 11:52 03/10/20 11:52 Intake & Output 03/09/20 03/10/20 03/11/20 06:59 06:59 06:59 Intake Total 1833 2200 400 Balance 1833 2200 400 Weight 66.5 kg General appearance: PRESENT: no acute distress Head exam: PRESENT: atraumatic, normocephalic Eye exam: PRESENT: conjunctiva pink ABSENT: pallor, scleral icterus Mouth exam: PRESENT: moist Neck exam: PRESENT: full ROM. ABSENT: carotid bruit, JVD, lymphadenopathy, thyromegaly Respiratory exam: PRESENT: clear to auscultation frankie Cardiovascular exam: PRESENT: RRR, +S1, +S2. ABSENT: diastolic murmur, rubs, systolic murmur GI/Abdominal exam: PRESENT: normal bowel sounds, soft. ABSENT: distended, guarding, mass, organomegaly, rebound, tenderness Extremities exam: ABSENT: pedal edema Neurological exam: PRESENT: alert, awake. ABSENT: motor sensory deficit Psychiatric exam: PRESENT: appropriate affect, normal mood. ABSENT: homicidal ideation, suicidal ideation Skin exam: PRESENT: dry, intact, warm. ABSENT: cyanosis Results Laboratory Results: WBC 5.6 10^3/uL (4.0-10.5) 03/09/20 13:20 RBC 4.54 10^6/uL (3.72-5.28) 03/09/20 13:20 Hgb 11.0 g/dL (12.0-15.5) L 03/09/20 13:20 Hct 34.6 % (36.0-47.0) L 03/09/20 13:20 MCV 76 fl (80-97) L 03/09/20 13:20 MCH 24.2 pg (27.0-33.4) L 03/09/20 13:20 MCHC 31.8 g/dL (32.0-36.0) L 03/09/20 13:20 RDW 14.4 % (11.5-14.0) H 03/09/20 13:20 Plt Count 277 10^3/uL (150-450) 03/09/20 13:20 Lymph % (Auto) 39.9 % (13-45) 03/09/20 13:20 [place] % (Auto) 8.3 % (3-13) 03/09/20 13:20 Eos % (Auto) 1.7 % (0-6) 03/09/20 13:20 Baso % (Auto) 0.6 % (0-2) 03/09/20 13:20 Absolute Neuts (auto) 2.8 10^3/uL (1.7-8.2) 03/09/20 13:20 Absolute Lymphs (auto) 2.2 10^3/uL (0.5-4.7) 03/09/20 13:20 Absolute Monos (auto) 0.5 10^3/uL (0.1-1.4) 03/09/20 13:20 Absolute Eos (auto) 0.1 10^3/uL (0.0-0.6) 03/09/20 13:20 Absolute Basos (auto) 0.0 10^3/uL (0.0-0.2) 03/09/20 13:20 Seg Neutrophils % 49.5 % (42-78) 03/09/20 13:20 Platelet Estimate Cancelled 03/05/20 09:20 Sodium 137.1 mmol/L (137-145) 03/09/20 13:20 Potassium 4.0 mmol/L (3.6-5.0) 03/09/20 13:20 Chloride 111 mmol/L (98-107) H 03/09/20 13:20 Carbon Dioxide 21 mmol/L (22-30) L 03/09/20 13:20 Anion Gap 5 (5-19) 03/09/20 13:20 BUN 2 mg/dL (7-20) L 03/09/20 13:20 Creatinine 0.85 mg/dL (0.52-1.25) 03/09/20 13:20 Est GFR ( Amer) > 60 (>60) 03/09/20 13:20 Est GFR (Non-Af Amer) Cancelled 03/04/20 16:00 Est GFR (MDRD) Non-Af > 60 (>60) 03/09/20 13:20 Glucose 106 mg/dL (75-110) 03/09/20 13:20 POC Glucose 112 mg/dL (70-110) H 03/10/20 11:40 Calcium 9.1 mg/dL (8.4-10.2) 03/09/20 13:20 Total Bilirubin 0.6 mg/dL (0.2-1.3) 03/04/20 17:09 Direct Bilirubin 0.0 mg/dL (0.0-0.4) 03/04/20 17:09 Neonat Total Bilirubin Not Reportable 03/04/20 17:09 Neonat Direct Bilirubin Not Reportable 03/04/20 17:09 Neonat Indirect Bili Not Reportable 03/04/20 17:09 AST 20 U/L (14-36) 03/04/20 17:09 ALT 10 U/L (<35) 03/04/20 17:09 Alkaline Phosphatase 114 U/L (38-126) 03/04/20 17:09 Total Protein 7.5 g/dL (6.3-8.2) 03/04/20 17:09 Albumin 4.5 g/dL (3.5-5.0) 03/04/20 17:09 EGFR Cancelled 03/04/20 16:00 Urine Color STRAW 03/05/20 05:48 Urine Appearance CLEAR 03/05/20 05:48 Urine pH 6.0 (5.0-9.0) 03/05/20 05:48 Ur Specific [place] 1.038 03/05/20 05:48 Urine Protein NEGATIVE mg/dL (NEGATIVE) 03/05/20 05:48 Urine Glucose (UA) NEGATIVE mg/dL (NEGATIVE) 03/05/20 05:48 Urine Ketones TRACE mg/dL (NEGATIVE) H 03/05/20 05:48 Urine Blood NEGATIVE (NEGATIVE) 03/05/20 05:48 Urine Nitrite NEGATIVE (NEGATIVE) 03/05/20 05:48 Urine Bilirubin NEGATIVE (NEGATIVE) 03/05/20 05:48 Urine Urobilinogen NEGATIVE mg/dL (<2.0) 03/05/20 05:48 Ur Leukocyte Esterase NEGATIVE (NEGATIVE) 03/05/20 05:48 Urine WBC (Auto) 1 /HPF 03/05/20 05:48 Urine RBC (Auto) 1 /HPF 03/05/20 05:48 U Hyaline Cast (Auto) Cancelled 03/04/20 17:43 Urine Bacteria (Auto) TRACE /HPF 03/05/20 05:48 Urine Red Cell Clumps Cancelled 03/04/20 17:43 Urine WBC Clumps Cancelled 03/04/20 17:43 Squamous Epi Cells Auto Cancelled 03/04/20 17:43 U Non-Squamous Epis Auto Cancelled 03/04/20 17:43 Calcium Carbonate Cryst Cancelled 03/04/20 17:43 Calcium Phosphate Cryst Cancelled 03/04/20 17:43 Calcium Oxalate Cr Auto Cancelled 03/04/20 17:43 Leucine Crystals Cancelled 03/04/20 17:43 Cystine Crystals Cancelled 03/04/20 17:43 Uric Acid Cryst (Auto) Cancelled 03/04/20 17:43 Triple Phos Cryst (Auto) Cancelled 03/04/20 17:43 Tyrosine Crystals Cancelled 03/04/20 17:43 Amorphous Sediment Auto Cancelled 03/04/20 17:43 Cellular Casts Cancelled 03/04/20 17:43 Epithelial Casts (Auto) Cancelled 03/04/20 17:43 Fatty Casts Cancelled 03/04/20 17:43 Granular Casts (Auto) Cancelled 03/04/20 17:43 Waxy Casts (Auto) Cancelled 03/04/20 17:43 Broad Casts Cancelled 03/04/20 17:43 RBC Casts (Auto) Cancelled 03/04/20 17:43 WBC Casts (Auto) Cancelled 03/04/20 17:43 Urine Mucus (Auto) RARE /LPF 03/05/20 05:48 U Trichomonas (Auto) Cancelled 03/04/20 17:43 Ur Yeast w Hyphae Cancelled 03/04/20 17:43 Urine Yeast (Budding) Cancelled 03/04/20 17:43 Urine Ascorbic Acid NEGATIVE (NEGATIVE) 03/05/20 05:48 COVID-19 Source NASOPHARYNGEAL 03/08/20 14:00 COVID-19 (MOON) NOT DETECTED 03/08/20 14:00 Slides for Path Review Cancelled 03/05/20 09:20 Impressions: Abdomen/Pelvis CT 03/04/20 00:00 IMPRESSION: Multiple dilated small bowel loops in the right lower quadrant surrounding surgical sutures, which may represent developing bowel obstruction or ileus secondary to adhesions. Acute Abdomen Series 03/04/20 00:00 IMPRESSION: No evidence of acute intrathoracic process. No definitive evidence of obstruction or other acute intra-abdominal process. Plan Health Concerns: Medication and dietary restriction compliance. Plan of Treatment: Medication and dietary review with caregiver and emphasize outpatient office follow up. Goals: Reduce readmission risk. Time Spent: Less than 30 Minutes Stroke Is this a Stroke Patient?: No Acute Heart Failure - Is this a Heart Failure Patient?: No
[2020-03-10 16:02] VITALS: BP 141/68
== END 2020-03-10 18:29 | disposition home health service (06) | DRG 390 ==
LOC: ER 14:26 → EH 17:28 → 4N 21:10 → 2N 03-06 03:34 → OBSVTOIN 03-06 13:21
PROVIDERS: ADMIT Internal Medicine Geriatric Medicine; ATTEND Internal Medicine Geriatric Medicine
DX: K56.600 Partial intestinal obstruction, unspecified as to cause (principal); E11.9 Type 2 diabetes mellitus without complications; I10 Essential (primary) hypertension; E78.5 Hyperlipidemia, unspecified; E55.9 Vitamin D deficiency, unspecified; M15.9 Polyosteoarthritis, unspecified; K21.9 Gastro-esophageal reflux disease without esophagitis; H40.1134 Primary open-angle glaucoma, bilateral, indeterminate stage; D72.829 Elevated white blood cell count, unspecified; R11.2 Nausea with vomiting, unspecified; F79 Unspecified intellectual disabilities; Z87.891 Personal history of nicotine dependence; Z79.84 Long term (current) use of oral hypoglycemic drugs; Z20.828 Contact with and (suspected) exposure to other viral communicable diseases
CPT/HCPCS: 36415; 74022; 74177; 80048; 80053; 81001; 82962; 85025; 87040; 87077; 87086; 87186; 87635; 99285; C9803; G0378; G0379; J0696; J1650; J2405; J3490; J7030